=== PATIENT | male | born 1970 | race Caucasian/White ===

== ENCOUNTER 2018-04-26 22:37 | Emergency (ER) | payer MEDICAID ==
[2018-04-26] MEDS ORDERED: CYCLOBENZAPRINE 10 MG TABLET PO STA (23:51)
[2018-04-26] MEDS ORDERED: KETOROLAC 60 MG/2 ML VIAL IM STA (23:51)
[2018-04-26] MEDS ORDERED: DEXAMETHASONE 10 MG/ML VIAL PO STA (23:51)
--- NOTE | 2018-04-27 00:25 | ED Physician Documentation ---
PD HPI BACK PAIN - Stated complaint Stated Complaint: BACK/HIP PX - Chief complaint Chief Complaint: Back Pain - History obtained from History obtained from: Patient - History of Present Illness Timing - onset: Yesterday, Chronic Timing - details: Abrupt onset Location: Mid, Lower, Right Quality: Pain, Similar to prior episodes Contributing factors: No: Anticoagulated Similar symptoms before: Work up / diagnostics, Treatment Recently seen: Not recently seen - Additional information Additional information: Patient is a 48 year old male with a history of prior lumbar surgery who is presenting to the emergency department for low back pain. Patient states that he fell off the couch and gurwinder his back. Patient is new to the area and does not currently have a physician. Patient has no neurological deficits. Review of Systems Ten Systems: 10 systems reviewed and negative PD PAST MEDICAL HISTORY - Past Medical History Past Medical History: No - Past Surgical History Past Surgical History: Yes General: Appendectomy Ortho: Spine surgery HEENT: Other - Present Medications Home Medications: Ambulatory Orders Medication Instructions Recorded Confirmed Cyclobenzaprine [Flexeril] 10 mg PO TID PRN #14 tablet 04/27/18 Oxycodone HCl/Acetaminophen 1 - 2 each PO Q6H PRN #7 tablet 04/27/18 [Percocet 5-325 mg Tablet] - Allergies Allergies/Adverse Reactions: Allergies Allergy/AdvReac Type Severity Reaction Status Date / Time No Known Drug Allergies Allergy Verified 04/26/18 22:49 - Social History Does the pt smoke?: No Smoking Status: Never smoker Does the pt drink ETOH?: Yes Does the pt have substance abuse?: No - Immunizations Immunizations are current?: Yes - POLST Patient has POLST: No PD ED PE NORMAL - Vitals Vital signs reviewed: Yes - General General: Alert and oriented X 3 - HEENT HEENT: Atraumatic - Respiratory Respiratory: No respiratory distress - Derm Derm: Normal color - Extremities Extremities: No deformity PD ED PE EXPANDED - General General: Alert, Anxious - Cardiac Cardiac: Tachy - Back Back: Vertebral tenderness (midline lumbar tenderness), Other (previous scarring ) - Neuro Neuro: Alert and Oriented X 3, Normal motor, Normal Sensation, Normal gait, Other (no saddle parasthesia ). No: Weakness Results - Vitals Vitals: Vital Signs - 24 hr 04/26/18 04/27/18 04/27/18 22:46 00:54 01:47 Temperature 36.3 C L 36.3 C L Heart Rate 127 H 114 H 110 H Respiratory 17 16 16 Rate Blood Pressure 143/115 H 135/99 H 141/99 H O2 Saturation 98 97 96 Oxygen O2 Source Room air - Rads (name of study) lumbar spine Radiology: Prelim report reviewed, Final report received (no acute fracture, hardware in place L5 anterior in si but no prior to compare ) PD MEDICAL DECISION MAKING - ED course Complexity details: reviewed old records, reviewed results, re-evaluated patient , considered differential, d/w patient ED course: Patient was seen and examined at bedside. imaging was ordered. patient was treated with toradol, decadron, flexeril and lidoderm. When patient returned from imaging he still was in pain and treated with one percocet. Patient had no neurological deficits at this time and was stable for discharge at this time. - Sepsis Event Vital Signs: Vital Signs - 24 hr 04/26/18 04/27/18 04/27/18 22:46 00:54 01:47 Temperature 36.3 C L 36.3 C L Heart Rate 127 H 114 H 110 H Respiratory 17 16 16 Rate Blood Pressure 143/115 H 135/99 H 141/99 H O2 Saturation 98 97 96 Oxygen O2 Source Room air Departure - Departure Disposition: 01 Home, Self Care Clinical Impression: Back pain Condition: Good Instructions: ED Low Back Pain Injury Follow-Up: Horacio Torres MD [Provider Admit Priv/Credential] - Prescriptions: Cyclobenzaprine [Flexeril] 10 mg PO TID PRN #14 tablet PRN Reason: Spasms Oxycodone HCl/Acetaminophen [Percocet 5-325 mg Tablet] 1 - 2 each PO Q6H PRN #7 tablet PRN Reason: pain Comments: Your x-ray showed no acute fracture or dislocation. Your L5 is almost a centimeter forward on your S1, but this could be your baseline. It is important to establish primary care. I gave you the number of the orthopedic group and you can call them tomorrow to set up a follow up appointment. you may return to the emergency department at any time for new, worsening or uncontrollable symptoms.
[2018-04-27] MEDS ORDERED: oxyCOD/ACETAMIN 5 MG/325 MG TABLET PO STA (00:54)
--- NOTE | 2018-04-27 01:05 | XRAY Report ---
Procedure Date: 04/27/2018 Accession Number: [id number] / [id number] Procedure: XR - Lumbar Spine 2 View CPT Code: FULL RESULT: EXAM: LUMBOSACRAL SPINE RADIOGRAPHY EXAM DATE: 04/27/2018 12:11 AM. CLINICAL HISTORY: Fall 3 days ago, continuing back pain, previous surgery. COMPARISONS: None. TECHNIQUE: 3 views. FINDINGS: Alignment: Anterolisthesis of L5 relative to S1 is noted, measuring 18 mm. Very slight left convex scoliosis of the lumbar spine centered at L3. Bones: Five ogn-rnt-pcrbrdy lumbar vertebral bodies are present. No fractures or bone lesions. Posterior laminectomy changes are seen from L3-S1. Posterior spinal fixation noted at L3-L4. Interbody prosthesis seen at L3-L4, L4-L5, and L5-S1. Hardware within the anteroinferior portion of the L4 vertebral body is noted. The lower portion of this hardware terminates at the L4-L5 disk space level. Correlation for appropriate positioning of the hardware recommended. Disks: Multilevel disk space height loss as well as endplate osteophytosis. Facets: Multilevel facet arthropathy. Sacroiliac Joints: No diastases Soft Tissues: The visualized bowel gas pattern is normal. Other: Incidentally noted mild bilateral hip joint degenerative change. IMPRESSION: 1. No acute osseous abnormality demonstrated. Please see discussion above regarding the lumbar spine hardware. 2. Anterolisthesis of 18 mm of L5 relative to S1 of undetermined etiology. This may be related to prior surgery and degenerative disk disease. Comparison with any prior outside institution studies would be helpful to assess chronicity. RADIA
[2018-04-27 01:48] VITALS: BP 141/99
== END 2018-04-27 01:48 | disposition home or self-care (01) ==
LOC: ED 22:37
DX: M54.5 Low back pain (principal)
CPT/HCPCS: 72100; 96372; 99283; A9270

== ENCOUNTER 2018-06-06 23:43 | Outpatient (CLI) | payer MEDICAID | END 2018-06-06 23:44 | disposition critical access hospital (66) | LOC: EMS 23:43 | PROVIDERS: ATTEND Surgery | DX: R44.0 Auditory hallucinations (principal); R44.1 Visual hallucinations | CPT/HCPCS: A0425; A0429; A0999 ==

== ENCOUNTER 2018-06-07 00:01 | Emergency (ER) | payer MEDICAID ==
[2018-06-07] MEDS ORDERED: LORazepam 0.5 MG TABLET PO STA (00:49)
[2018-06-07 01:11] LABS: BASOPHILS # (AUTO) 0.1 10^3/uL (0.0-0.1); BASOPHILS % (AUTO) 0.8 %; EOSINOPHILS % (AUTO) 0.6 %; HGB - HEMOGLOBIN 14.1 g/dL (14.0-18.0); LYMPHOCYTES % (AUTO) 26.1 %; MEAN CORPUSCULAR HEMOGLOBIN 30.3 pg (27.0-31.0); MEAN CORPUSCULAR HGB CONC 34.9 g/dL (32.0-36.0); MEAN CORPUSCULAR VOLUME 86.7 fL (80.0-94.0); MEAN PLATELET VOLUME 8.8 fL (7.4-11.4); MONOCYTES # (AUTO) 0.5 10^3/uL (0.0-1.0); MONOCYTES % (AUTO) 5.9 %; NEUTROPHILS # (AUTO) 5.2 10^3/uL (1.5-6.6); NEUTROPHILS % (AUTO) 66.6 %; PLT - PLATELET COUNT 272 10^3/uL (130-450); RED BLOOD COUNT 4.66 10^6/uL (4.70-6.10); RED CELL DISTRIBUTION WIDTH 13.9 % (12.0-15.0); WHITE BLOOD COUNT 7.8 x10^3/uL (4.8-10.8)
[2018-06-07 01:23] LABS: ALBUMIN 4.1 g/dL (3.2-5.5); ALBUMIN/GLOBULIN RATIO 1.3 (1.0-2.2); ALKALINE PHOSPHATASE 65 IU/L (42-121); ALT ALANINE AMINOTRANSFERASE 33 IU/L (10-60); AST ASPARTATE AMINOTRANSFERASE 27 IU/L (10-42); BILIRUBIN,TOTAL 2.5 mg/dL (0.2-1.0); BUN - BLOOD UREA NITROGEN 11 mg/dL (6-20); CALCIUM 9.3 mg/dL (8.5-10.3); CARBON DIOXIDE - CO2 22 mmol/L (21-32); CHLORIDE 106 mmol/L (101-111); GFR - MDRD 80 (>89); GLUCOSE 106 mg/dL (70-100); LIPASE 24 U/L (22-51); SALICYLATE < 6.0 mg/dL; SODIUM 138 mmol/L (135-145); TOTAL PROTEIN 7.3 g/dL (6.7-8.2)
[2018-06-07 01:24] LABS: ACETAMINOPHEN < 10 ug/mL (10-30)
[2018-06-07] MEDS ORDERED: POTASSIUM BICARB 25 MEQ TABLET PO STA (02:17)
--- NOTE | 2018-06-07 02:21 | ED Physician Documentation ---
PD HPI MHE - Stated complaint Stated Complaint: MHE - Chief complaint Chief Complaint: MHE - History obtained from History obtained from: Patient - History of Present Illness Primary symptom: Psychosis, Out of meds Timing - onset: Chronic Contributing factors: Out of meds Similar symptoms before: Work up / diagnostics, Treatment Recently seen: Not recently seen - Additional information Additional information: Patient is a 48 year old male with a history of bipolar disorder with psychotic features who was brought in by ems for auditory hallucinations. patient states that he had been on a number of medications but he moved her from [place] without a doctor and has not had his medications. Patient states that the voices have become progressively worse. When asked if he only needed refills and outpatient appointment patient stated that he needed to talk to someone and was scared to go home because he did not know what he would do. Review of Systems Ten Systems: 10 systems reviewed and negative Psychiatric: reports: Depressed, Hallucinations, Anxiety, Insomnia PD PAST MEDICAL HISTORY - Past Medical History Past Medical History: Yes Psych: Depression, Anxiety, Bipolar disorder, Other Other Past Medical History: psychotic with visual/auditory hallucinations - Past Surgical History Past Surgical History: Yes General: Appendectomy Ortho: Spine surgery - Present Medications Home Medications: Ambulatory Orders Medication Instructions Recorded Confirmed No Known Home Medications [No 06/07/18 06/07/18 Known Home Medications] - Allergies Allergies/Adverse Reactions: Allergies Allergy/AdvReac Type Severity Reaction Status Date / Time No Known Drug Allergies Allergy Verified 06/07/18 00:10 - Social History Does the pt smoke?: No Smoking Status: Never smoker Does the pt drink ETOH?: No Does the pt have substance abuse?: No PD ED PE NORMAL - Vitals Vital signs reviewed: Yes - General General: Alert and oriented X 3, No acute distress - HEENT HEENT: Atraumatic - Cardiac Cardiac: RRR - Respiratory Respiratory: No respiratory distress - Derm Derm: Normal color, Warm and dry - Extremities Extremities: No deformity - Neuro Neuro: Alert and oriented X 3, No motor deficit, Normal speech Eye Opening: Spontaneous Motor: Obeys Commands Verbal: Oriented GCS Score: 15 PD ED PE EXPANDED - Psych Psych: Anxious, Auditory hallucinations, Visual hallucinations Results - Vitals Vitals: Vital Signs - 24 hr 06/07/18 00:05 Temperature 37.5 C Heart Rate 95 Respiratory 20 Rate Blood Pressure 140/106 H O2 Saturation 100 Oxygen O2 Source Room air - Labs Labs: Laboratory Tests 06/07/18 06/07/18 06/07/18 01:00 01:00 01:00 WBC 7.8 RBC 4.66 L Hgb 14.1 Hct 40.4 L MCV 86.7 MCH 30.3 MCHC 34.9 RDW 13.9 Plt Count 272 MPV 8.8 Neut # (Auto) 5.2 Lymph # (Auto) 2.0 [place] # (Auto) 0.5 Eos # (Auto) 0.0 Baso # (Auto) 0.1 Absolute Nucleated RBC 0.00 Nucleated RBC % 0.0 Sodium 138 Potassium 3.0 L Chloride 106 Carbon Dioxide 22 Anion Gap 10.0 BUN 11 Creatinine 1.0 Estimated GFR (MDRD) 80 L Glucose 106 H Calcium 9.3 Total Bilirubin 2.5 H AST 27 ALT 33 Alkaline Phosphatase 65 Total Protein 7.3 Albumin 4.1 Globulin 3.2 Albumin/Globulin Ratio 1.3 Lipase 24 TSH 1.55 Salicylates < 6.0 Urine Opiates Screen Ur Oxycodone Screen Urine Methadone Screen Ur Propoxyphene Screen Acetaminophen < 10 L Ur Barbiturates Screen Ur Tricyclics Screen Ur Phencyclidine Scrn Ur Amphetamine Screen U Methamphetamines Scrn U Benzodiazepines Scrn Urine Cocaine Screen U Cannabinoids Screen Ethyl Alcohol < 5.0 06/07/18 02:50 WBC RBC Hgb Hct MCV MCH MCHC RDW Plt Count MPV Neut # (Auto) Lymph # (Auto) [place] # (Auto) Eos # (Auto) Baso # (Auto) Absolute Nucleated RBC Nucleated RBC % Sodium Potassium Chloride Carbon Dioxide Anion Gap BUN Creatinine Estimated GFR (MDRD) Glucose Calcium Total Bilirubin AST ALT Alkaline Phosphatase Total Protein Albumin Globulin Albumin/Globulin Ratio Lipase TSH Salicylates Urine Opiates Screen NEGATIVE Ur Oxycodone Screen NEGATIVE Urine Methadone Screen NEGATIVE Ur Propoxyphene Screen NEGATIVE Acetaminophen Ur Barbiturates Screen NEGATIVE Ur Tricyclics Screen NEGATIVE Ur Phencyclidine Scrn NEGATIVE Ur Amphetamine Screen NEGATIVE U Methamphetamines Scrn NEGATIVE U Benzodiazepines Scrn NEGATIVE Urine Cocaine Screen NEGATIVE U Cannabinoids Screen POSITIVE H Ethyl Alcohol PD MEDICAL DECISION MAKING - ED course Complexity details: reviewed old records, re-evaluated patient, considered differential, d/w patient ED course: Patient was seen and examined at bedside. labs were drawn and urine was collected. patient was treated with ativan for anxiety and to try to help his sleep. Patient reported that the voices were getting worse and was treated with zyprexa. Patient's potassium was replaced. after a few hours patient stated that his agitation was coming back and patient was treated with another dose of zyprexa 5mg. patient was otherwise medically clear. Patient was signed over to Dr. Jackson pending social work evaluation. - Sepsis Event Vital Signs: Vital Signs - 24 hr 06/07/18 00:05 Temperature 37.5 C Heart Rate 95 Respiratory 20 Rate Blood Pressure 140/106 H O2 Saturation 100 Oxygen O2 Source Room air Departure - Departure Clinical Impression: Bipolar disorder with psychotic features Condition: Stable
[2018-06-07 02:56] LABS: MUDS CUTOFF CONCENTRATIONS CUTOFF CONC BELOW:
[2018-06-07 03:07] LABS: AMPHETAMINE SCREEN,URINE NEGATIVE (NEGATIVE); BENZODIAZEPINES SCREEN, URINE NEGATIVE (NEGATIVE); COCAINE SCREEN URINE NEGATIVE (NEGATIVE); METHADONE SCREEN, URINE NEGATIVE (NEGATIVE); METHAMPHETAMINES SCREEN, URINE NEGATIVE (NEGATIVE); OPIATE SCREEN, URINE NEGATIVE (NEGATIVE); OXYCODONE SCREEN, URINE NEGATIVE (NEGATIVE); PROPOXYPHENE SCREEN, URINE NEGATIVE (NEGATIVE); TRICYCLIC ANTIDEPRESSANT,URINE NEGATIVE (NEGATIVE)
[2018-06-07] MEDS ORDERED: OLANZapine ODT 5 MG TABLET TL STA ×2 (03:15→05:39)
--- NOTE | 2018-06-07 07:08 | ED Physician Documentation ---
History of Present Illness - Stated complaint Stated Complaint: MHE - Chief complaint Chief Complaint: MHE PD PAST MEDICAL HISTORY - Past Medical History Past Medical History: Yes Psych: Depression, Anxiety, Bipolar disorder, Other Other Past Medical History: psychotic with visual/auditory hallucinations - Past Surgical History Past Surgical History: Yes General: Appendectomy Ortho: Spine surgery - Present Medications Home Medications: Ambulatory Orders Medication Instructions Recorded Confirmed No Known Home Medications [No 06/07/18 06/07/18 Known Home Medications] - Allergies Allergies/Adverse Reactions: Allergies Allergy/AdvReac Type Severity Reaction Status Date / Time No Known Drug Allergies Allergy Verified 06/07/18 00:10 - Social History Does the pt smoke?: No Smoking Status: Never smoker Does the pt drink ETOH?: No Does the pt have substance abuse?: No Results - Vitals Vitals: Vital Signs - 24 hr 06/07/18 06/07/18 00:05 12:02 Temperature 37.5 C 36.5 C Heart Rate 95 57 L Respiratory 20 18 Rate Blood Pressure 140/106 H 106/79 O2 Saturation 100 96 Oxygen O2 Source Room air - Labs Labs: Laboratory Tests 06/07/18 06/07/18 06/07/18 01:00 01:00 01:00 WBC 7.8 RBC 4.66 L Hgb 14.1 Hct 40.4 L MCV 86.7 MCH 30.3 MCHC 34.9 RDW 13.9 Plt Count 272 MPV 8.8 Neut # (Auto) 5.2 Lymph # (Auto) 2.0 [place] # (Auto) 0.5 Eos # (Auto) 0.0 Baso # (Auto) 0.1 Absolute Nucleated RBC 0.00 Nucleated RBC % 0.0 Sodium 138 Potassium 3.0 L Chloride 106 Carbon Dioxide 22 Anion Gap 10.0 BUN 11 Creatinine 1.0 Estimated GFR (MDRD) 80 L Glucose 106 H Calcium 9.3 Total Bilirubin 2.5 H AST 27 ALT 33 Alkaline Phosphatase 65 Total Protein 7.3 Albumin 4.1 Globulin 3.2 Albumin/Globulin Ratio 1.3 Lipase 24 TSH 1.55 Salicylates < 6.0 Urine Opiates Screen Ur Oxycodone Screen Urine Methadone Screen Ur Propoxyphene Screen Acetaminophen < 10 L Ur Barbiturates Screen Ur Tricyclics Screen Ur Phencyclidine Scrn Ur Amphetamine Screen U Methamphetamines Scrn U Benzodiazepines Scrn Urine Cocaine Screen U Cannabinoids Screen Ethyl Alcohol < 5.0 06/07/18 02:50 WBC RBC Hgb Hct MCV MCH MCHC RDW Plt Count MPV Neut # (Auto) Lymph # (Auto) [place] # (Auto) Eos # (Auto) Baso # (Auto) Absolute Nucleated RBC Nucleated RBC % Sodium Potassium Chloride Carbon Dioxide Anion Gap BUN Creatinine Estimated GFR (MDRD) Glucose Calcium Total Bilirubin AST ALT Alkaline Phosphatase Total Protein Albumin Globulin Albumin/Globulin Ratio Lipase TSH Salicylates Urine Opiates Screen NEGATIVE Ur Oxycodone Screen NEGATIVE Urine Methadone Screen NEGATIVE Ur Propoxyphene Screen NEGATIVE Acetaminophen Ur Barbiturates Screen NEGATIVE Ur Tricyclics Screen NEGATIVE Ur Phencyclidine Scrn NEGATIVE Ur Amphetamine Screen NEGATIVE U Methamphetamines Scrn NEGATIVE U Benzodiazepines Scrn NEGATIVE Urine Cocaine Screen NEGATIVE U Cannabinoids Screen POSITIVE H Ethyl Alcohol PD MEDICAL DECISION MAKING - ED course ED course: assumed care 7 AM 06/07/18 48 male hx psychosis off meds for few weeks has vis and auditory hallucinations did not feel safe at home seen by night auditor and medically cleared - K repleted received zyprexa is awaiting SW eval per night auditor anticipate refill meds and outpt fup went to see pt [id number] he is awake RRR CTAB despite zyprexa last night, he states he is still hearing voices and they are telling him to harm others also vis hallucinations he thinks he needs inpt mental health he is vol SW consult pending bili noted but pt has no abd pain - defer to outpt setting after mental health issues Sw placed pt at [facility] completed pt has been calm and feel he is safe for BLS transport - Sepsis Event Vital Signs: Vital Signs - 24 hr 06/07/18 06/07/18 00:05 12:02 Temperature 37.5 C 36.5 C Heart Rate 95 57 L Respiratory 20 18 Rate Blood Pressure 140/106 H 106/79 O2 Saturation 100 96 Oxygen O2 Source Room air Departure - Departure Disposition: 65 Psych Hosp/Unit DC/Xfer Clinical Impression: Bipolar disorder with psychotic features Condition: Stable Comments: After you have been stabilized on medications and are out of [facility], I recommend you see your PMD about one of your liver function tests being elevated Discharge Date/Time: 06/07/18 17:04
[2018-06-07 12:03] VITALS: BP 106/79
== END 2018-06-07 17:04 ==
LOC: ED 00:01 → MERGE 00:01 → ED 17:04
DX: F30.2 Manic episode, severe with psychotic symptoms (principal)
CPT/HCPCS: 36415; 80053; 80306; 80307; 80320; 80329; 83690; 84443; 85025; 99284; 99285; A9270

== ENCOUNTER 2018-07-25 15:05 | Outpatient (CLI) | payer MEDICAID | END 2018-07-25 15:06 | disposition critical access hospital (66) | LOC: EMS 15:05 | PROVIDERS: ATTEND Surgery | DX: R44.0 Auditory hallucinations (principal) | CPT/HCPCS: A0425; A0429; A0999 ==

== ENCOUNTER 2018-07-25 15:27 | Emergency (ER) | payer MEDICAID ==
[2018-07-25 15:58] LABS: BASOPHILS % (AUTO) 0.4 %; EOSINOPHILS % (AUTO) 0.3 %; HGB - HEMOGLOBIN 16.1 g/dL (14.0-18.0); LYMPHOCYTES # (AUTO) 1.3 10^3/uL (1.5-3.5); MEAN CORPUSCULAR HEMOGLOBIN 29.9 pg (27.0-31.0); MEAN PLATELET VOLUME 8.4 fL (7.4-11.4); MONOCYTES # (AUTO) 0.3 10^3/uL (0.0-1.0); MONOCYTES % (AUTO) 3.8 %; NEUTROPHILS # (AUTO) 6.7 10^3/uL (1.5-6.6); NEUTROPHILS % (AUTO) 79.5 %; PLT - PLATELET COUNT 316 10^3/uL (130-450); RED CELL DISTRIBUTION WIDTH 14.3 % (12.0-15.0); WHITE BLOOD COUNT 8.4 x10^3/uL (4.8-10.8)
[2018-07-25 16:12] LABS: ACETAMINOPHEN < 10 ug/mL (10-30); ALBUMIN 4.5 g/dL (3.2-5.5); ALBUMIN/GLOBULIN RATIO 1.1 (1.0-2.2); ALKALINE PHOSPHATASE 99 IU/L (42-121); ALT ALANINE AMINOTRANSFERASE 32 IU/L (10-60); AST ASPARTATE AMINOTRANSFERASE 30 IU/L (10-42); BILIRUBIN,TOTAL 1.4 mg/dL (0.2-1.0); BUN - BLOOD UREA NITROGEN 12 mg/dL (6-20); CALCIUM 9.9 mg/dL (8.5-10.3); CARBON DIOXIDE - CO2 24 mmol/L (21-32); CHLORIDE 104 mmol/L (101-111); CREATININE 1.5 mg/dL (0.6-1.2); GFR - MDRD 50 (>89); GLUCOSE 111 mg/dL (70-100); LIPASE 18 U/L (22-51); SALICYLATE < 6.0 mg/dL; SODIUM 139 mmol/L (135-145); TOTAL PROTEIN 8.5 g/dL (6.7-8.2)
[2018-07-25 17:19] LABS: MUDS CUTOFF CONCENTRATIONS CUTOFF CONC BELOW:
[2018-07-25 17:24] LABS: BILIRUBIN,URINE NEGATIVE (NEGATIVE); GLUCOSE, URINE (UA) NEGATIVE (NEGATIVE); KETONES,URINE (UA) NEGATIVE (NEGATIVE); LEUKOCYTE ESTERASE, URINE NEGATIVE (NEGATIVE); NITRITE,URINE NEGATIVE (NEGATIVE); OCCULT BLOOD,URINE NEGATIVE (NEGATIVE); PH,URINE 7.5 PH (5.0-7.5); PROTEIN,URINE NEGATIVE (NEGATIVE); UROBILINOGEN,URINE 0.2 (NORMAL) E.U./dL (NORMAL)
[2018-07-25] MEDS ORDERED: SODIUM CHLORIDE 0.9% 1,000 ML IV ONE (17:27)
[2018-07-25 17:28] LABS: CLARITY,URINE CLEAR (CLEAR)
[2018-07-25 17:33] LABS: AMPHETAMINE SCREEN,URINE NEGATIVE (NEGATIVE); BENZODIAZEPINES SCREEN, URINE POSITIVE (NEGATIVE); COCAINE SCREEN URINE NEGATIVE (NEGATIVE); METHADONE SCREEN, URINE NEGATIVE (NEGATIVE); METHAMPHETAMINES SCREEN, URINE NEGATIVE (NEGATIVE); OPIATE SCREEN, URINE NEGATIVE (NEGATIVE); OXYCODONE SCREEN, URINE NEGATIVE (NEGATIVE); PROPOXYPHENE SCREEN, URINE NEGATIVE (NEGATIVE); TRICYCLIC ANTIDEPRESSANT,URINE NEGATIVE (NEGATIVE)
--- NOTE | 2018-07-25 18:48 | ED Physician Documentation ---
PD HPI MHE - Stated complaint Stated Complaint: MHE - Chief complaint Chief Complaint: MHE - Additional information Additional information: 48-year-old male presents emergency department with complaints of Hearing voices and the patient is concerned that he will perform self-harm. The patient has not injured himself currently. The patient denies any acute medical complaints. The patient reports severe symptoms. The patient is currently voluntary and requesting placement into a behavioral center Review of Systems Constitutional: denies: Fever Eyes: denies: Loss of vision Ears: denies: Ear pain Throat: denies: Dental pain / toothache Cardiac: denies: Chest pain / pressure Respiratory: denies: Cough GI: denies: Abdominal Pain : denies: Dysuria Skin: denies: Rash Musculoskeletal: denies: Neck pain Neurologic: denies: Generalized weakness Psychiatric: reports: Depressed, Suicidal, Hallucinations PD PAST MEDICAL HISTORY - Past Medical History Past Medical History: Yes Psych: Depression, Anxiety, Bipolar disorder, Other - Past Surgical History Past Surgical History: Yes General: Appendectomy Ortho: Spine surgery HEENT: Other - Present Medications Home Medications: Ambulatory Orders Medication Instructions Recorded Confirmed Cyclobenzaprine [Flexeril] 10 mg PO TID PRN #14 tablet 04/27/18 Oxycodone HCl/Acetaminophen 1 - 2 each PO Q6H PRN #7 tablet 04/27/18 [Percocet 5-325 mg Tablet] No Known Home Medications 06/07/18 06/07/18 - Allergies Allergies/Adverse Reactions: Allergies Allergy/AdvReac Type Severity Reaction Status Date / Time No Known Drug Allergies Allergy Verified 04/26/18 22:49 - Social History Does the pt smoke?: No Smoking Status: Never smoker Does the pt drink ETOH?: No Does the pt have substance abuse?: No - Immunizations Immunizations are current?: Yes - POLST Patient has POLST: No PD ED PE NORMAL - General General: Alert and oriented X 3, No acute distress - HEENT HEENT: Atraumatic, PERRL, EOMI - Neck Neck: Supple, no meningeal sign - Cardiac Cardiac: Other (Regular tachycardia) - Respiratory Respiratory: No respiratory distress, Clear bilaterally - Abdomen Abdomen: Soft, Non tender, Non distended - Back Back: No CVA TTP - Derm Derm: Normal color - Extremities Extremities: No deformity, No tenderness to palpate - Neuro Neuro: Alert and oriented X 3, Normal speech PD ED PE EXPANDED - Psych Psych: Depressed, Suicidal, Withdrawn, Auditory hallucinations. No: Intoxicated / AOB Results - Vitals Vitals: Vital Signs - 24 hr 07/25/18 07/25/18 15:29 19:51 Temperature 36.3 C L 37.1 C Heart Rate 114 H 97 Respiratory 18 16 Rate Blood Pressure 136/99 H 137/105 H O2 Saturation 96 96 Oxygen O2 Source Room air - Labs Labs: Laboratory Tests 07/25/18 07/25/18 07/25/18 15:51 15:51 17:18 WBC 8.4 RBC 5.40 Hgb 16.1 Hct 47.5 MCV 88.0 MCH 29.9 MCHC 34.0 RDW 14.3 Plt Count 316 MPV 8.4 Neut # (Auto) 6.7 H Lymph # (Auto) 1.3 L [place] # (Auto) 0.3 Eos # (Auto) 0.0 Baso # (Auto) 0.0 Absolute Nucleated RBC 0.03 Nucleated RBC % 0.4 Sodium 139 Potassium 3.7 Chloride 104 Carbon Dioxide 24 Anion Gap 11.0 BUN 12 Creatinine 1.5 H Estimated GFR (MDRD) 50 L Glucose 111 H Calcium 9.9 Total Bilirubin 1.4 H AST 30 ALT 32 Alkaline Phosphatase 99 Total Protein 8.5 H Albumin 4.5 Globulin 4.0 Albumin/Globulin Ratio 1.1 Lipase 18 L Urine Color YELLOW Urine Clarity CLEAR Urine pH 7.5 Ur Specific [place] 1.010 Urine Protein NEGATIVE Urine Glucose (UA) NEGATIVE Urine Ketones NEGATIVE Urine Occult Blood NEGATIVE Urine Nitrite NEGATIVE Urine Bilirubin NEGATIVE Urine Urobilinogen 0.2 (NORMAL) Ur Leukocyte Esterase NEGATIVE Ur Microscopic Review NOT INDICATED Urine Culture Comments NOT INDICATED Salicylates < 6.0 Urine Opiates Screen NEGATIVE Ur Oxycodone Screen NEGATIVE Urine Methadone Screen NEGATIVE Ur Propoxyphene Screen NEGATIVE Acetaminophen < 10 L Ur Barbiturates Screen NEGATIVE Ur Tricyclics Screen NEGATIVE Ur Phencyclidine Scrn NEGATIVE Ur Amphetamine Screen NEGATIVE U Methamphetamines Scrn NEGATIVE U Benzodiazepines Scrn POSITIVE H Urine Cocaine Screen NEGATIVE U Cannabinoids Screen NEGATIVE Ethyl Alcohol < 5.0 PD MEDICAL DECISION MAKING - ED course ED course: The patient is medically stable and is voluntary. The patient requests placement back to [facility]. We will attempt to procure the patient a bed 23:00 PM The patient is pending placement into a behavioral health facility. The patient care was turned over to Dr. Goode Departure - Departure Clinical Impression: Hallucinations
[2018-07-25] MEDS ORDERED: OLANZapine ODT 5 MG TABLET TL ONE (20:09)
[2018-07-25] MEDS ORDERED: IBUPROFEN 600 MG TABLET PO STA (22:39)
[2018-07-26] MEDS ORDERED: TEMAZEPAM 15 MG CAPSULE PO STA (01:56)
[2018-07-26] MEDS ORDERED: MIRTAZAPINE 15 MG TABLET PO STA (01:56)
[2018-07-26 04:58] VITALS: BP 96/78
--- NOTE | 2018-07-27 12:37 | ED Physician Documentation ---
ED Addendum - Addendum Addendum: 07/27/18 12:37 DISPOSITION : transfer [facility] hospital
== END 2018-07-26 05:00 ==
LOC: ED 15:27
DX: R44.0 Auditory hallucinations (principal); F31.9 Bipolar disorder, unspecified
CPT/HCPCS: 36415; 80053; 80306; 80307; 80320; 80329; 81003; 83690; 85025; 96360; 99284; A9270; 81001; 87086

== ENCOUNTER 2018-12-11 11:31 | Emergency (ER) | payer MEDICAID ==
--- NOTE | 2018-12-11 14:35 | ED Physician Documentation ---
PD HPI ABD PAIN - Stated complaint Stated Complaint: ABD/BACK PX TINGLING - Chief complaint Chief Complaint: General - History obtained from History obtained from: Patient - History of Present Illness Timing - onset: How many weeks ago (3) Timing - duration: Weeks (3) Timing - details: Gradual onset, Still present Quality: Cramping, Aching Location: All over / everywhere (more in lower abd) Improved by: No: Vomiting Worsened by: Eating Associated symptoms: Nausea, Vomiting, Diarrhea (profuse with lot of gas) Similar symptoms before: Has not had sx before Review of Systems Constitutional: reports: Fatigue. denies: Fever, Chills Nose: denies: Rhinorrhea / runny nose, Congestion Throat: denies: Sore throat Respiratory: denies: Cough GI: reports: Abdominal Pain, Nausea, Vomiting, Diarrhea. denies: Hematemesis, Bloody / black stool : denies: Dysuria, Frequency Musculoskeletal: denies: Back pain Neurologic: reports: Generalized weakness. denies: Focal weakness, Numbness, Near syncope Endocrine: reports: Weight loss (30 lbs in 3 weeks) PD PAST MEDICAL HISTORY - Past Medical History Cardiovascular: None Respiratory: None Neuro: None Endocrine/Autoimmune: None GI: None Psych: Depression, Anxiety, Bipolar disorder, Other - Past Surgical History Past Surgical History: Yes General: Appendectomy Ortho: Spine surgery HEENT: Other - Present Medications Home Medications: Ambulatory Orders Medication Instructions Recorded Confirmed Cyclobenzaprine [Flexeril] 10 mg PO TID PRN #14 tablet 04/27/18 Oxycodone HCl/Acetaminophen 1 - 2 each PO Q6H PRN #7 tablet 04/27/18 [Percocet 5-325 mg Tablet] Diphenoxylate/Atropine [Lomotil] 1 each PO QID PRN #15 tablet 12/11/18 Hydrocodone/Acetaminophen [[place] 1 each PO Q6H PRN #15 tablet 12/11/18 5-325 Tablet] Ondansetron Odt [Zofran] 4 mg TL Q6H PRN #20 tablet 12/11/18 metroNIDAZOLE [Flagyl] 250 mg PO Q8H #21 tablet 12/11/18 - Allergies Allergies/Adverse Reactions: Allergies Allergy/AdvReac Type Severity Reaction Status Date / Time cyclobenzaprine AdvReac Itching Verified 12/11/18 11:43 [From Flexeril] - Living Situation Living Situation: reports: With friend(s) (had been homelss until recent job and is living with friend now. Had had poor sanitation and water source when homeless.) - Social History Does the pt smoke?: No Smoking Status: Never smoker Does the pt drink ETOH?: No Does the pt have substance abuse?: No - Immunizations Immunizations are current?: Yes - POLST Patient has POLST: No PD ED PE NORMAL - Vitals Vital signs reviewed: Yes - General General: Alert and oriented X 3, Well developed/nourished, Other (appears uncomfortable) - HEENT HEENT: Pharynx benign. No: Moist mucous membranes - Neck Neck: Supple, no meningeal sign, No adenopathy - Cardiac Cardiac: RRR, No murmur - Respiratory Respiratory: Clear bilaterally - Abdomen Abdomen: Normal bowel sounds, Soft, Non distended, No organomegaly, Other (tender diffusely without focal area. No percussion nor rebound. ) Results - Vitals Vitals: Vital Signs - 24 hr 12/11/18 12/11/18 12/11/18 11:43 17:19 19:20 Temperature 36.3 C L 36.7 C 36.6 C Heart Rate 100 60 58 L Respiratory 18 17 16 Rate Blood Pressure 149/82 H 131/85 H 130/74 O2 Saturation 98 99 99 Oxygen O2 Source Room air - Labs Labs: Laboratory Tests 12/11/18 12/11/18 15:05 15:05 WBC 8.7 RBC 4.84 Hgb 14.1 Hct 42.1 MCV 87.1 MCH 29.2 MCHC 33.5 RDW 14.3 Plt Count 373 MPV 8.5 Neut # (Auto) 5.6 Lymph # (Auto) 2.6 [place] # (Auto) 0.4 Eos # (Auto) 0.0 Baso # (Auto) 0.1 Absolute Nucleated RBC 0.01 Nucleated RBC % 0.1 Sodium 137 Potassium 2.7 L Chloride 101 Carbon Dioxide 22 Anion Gap 14.0 H BUN 14 Creatinine 0.9 Estimated GFR (MDRD) 91 Glucose 148 H Calcium 9.4 PD MEDICAL DECISION MAKING - ED course Complexity details: re-evaluated patient, considered differential (The lab testing and CT scan were delayed due to lab abnormalities correction lab dysfunction and unable to get us test results as her machine was broken. Subsequently were able to get some labs in also then get the CT scan. He was given IV fluids while here along with antiemetics and medicine for pain and cramps. These did help quite a bit and is able to eat and drink some fluids. His CT scan did not show any acute focal abnormalities. The duration and severity of his diarrhea are suggestive of an infectious cause. He had previously been homeless and his water source was questionable so I would treat him for possibilities of Giardia, C. difficile, or less likely Salmonella. He would need to make an appointment with his primary care in their several weeks out on appointments. I therefore discussed with him and we had a shared decision to empirically treat with metronidazole for now and do stool cultures and tests if not improved. This is based on the fact he was unable to have a stool movement here and rather than trying to wait for outpatient cultures), d/w patient Departure - Departure Disposition: 01 Home, Self Care Clinical Impression: Weight loss Diarrhea Qualifiers: Diarrhea type: presumed infectious Qualified Code(s): R19.7 - Diarrhea, unspecified Condition: Stable Record reviewed to determine appropriate education?: Yes Instructions: ED Diarrhea Bacterial Prescriptions: Diphenoxylate/Atropine [Lomotil] 1 each PO QID PRN #15 tablet PRN Reason: Diarrhea Hydrocodone/Acetaminophen [[place] 5-325 Tablet] 1 each PO Q6H PRN #15 tablet PRN Reason: Pain metroNIDAZOLE [Flagyl] 250 mg PO Q8H #21 tablet Ondansetron Odt [Zofran] 4 mg TL Q6H PRN #20 tablet PRN Reason: Nausea / Vomiting Comments: Small frequent fluids and simple foods such as rice pasta as breads and cereals. Progress diet as able. Ondansetron as needed for nausea. Lomotil for diarrhea. Add hydrocodone if needed for pains and cramps. It is not clear the cause of the diarrhea at this point, presume an infectious cause. We can empirically try an antibiotic for the most likely culprits with Metronidazole three times daily for a week. If you are not improved over the next several days, and the diarrhea persists, obtain a stool sample that you can bring to your primary care or if you need to return to the ER. Follow-up if not improved over the next several days to week. Return if worsening symptoms. Discharge Date/Time: 12/11/18 19:28
[2018-12-11] MEDS ORDERED: SODIUM CHLORIDE 0.9% 1,000 ML IV ONE (14:55)
[2018-12-11] MEDS ORDERED: HYDROmorphone 1 MG/ML CARPUJECT IVP STA ×2 (14:55→18:19)
[2018-12-11] MEDS ORDERED: ONDANSETRON 4 MG/2 ML VIAL IVP STA (14:55)
[2018-12-11] MEDS ORDERED: KETOROLAC 15 MG/ML VIAL IVP STA (14:57)
[2018-12-11 15:15] LABS: BASOPHILS # (AUTO) 0.1 10^3/uL (0.0-0.1); BASOPHILS % (AUTO) 0.7 %; EOSINOPHILS % (AUTO) 0.4 %; HGB - HEMOGLOBIN 14.1 g/dL (14.0-18.0); LYMPHOCYTES # (AUTO) 2.6 10^3/uL (1.5-3.5); LYMPHOCYTES % (AUTO) 29.8 %; MEAN CORPUSCULAR HEMOGLOBIN 29.2 pg (27.0-31.0); MEAN CORPUSCULAR HGB CONC 33.5 g/dL (32.0-36.0); MEAN CORPUSCULAR VOLUME 87.1 fL (80.0-94.0); MEAN PLATELET VOLUME 8.5 fL (7.4-11.4); MONOCYTES # (AUTO) 0.4 10^3/uL (0.0-1.0); MONOCYTES % (AUTO) 4.9 %; NEUTROPHILS # (AUTO) 5.6 10^3/uL (1.5-6.6); NEUTROPHILS % (AUTO) 64.2 %; PLT - PLATELET COUNT 373 10^3/uL (130-450); RED BLOOD COUNT 4.84 10^6/uL (4.70-6.10); RED CELL DISTRIBUTION WIDTH 14.3 % (12.0-15.0); WHITE BLOOD COUNT 8.7 x10^3/uL (4.8-10.8)
[2018-12-11 15:25] LABS: CALCIUM 9.4 mg/dL (8.5-10.3)
[2018-12-11] MEDS ORDERED: IOVERSOL 320 100 ML VIAL IVP ONE ×2 (15:39→17:34)
[2018-12-11] MEDS ORDERED: POTASSIUM BICARB 25 MEQ TABLET PO STA (16:31)
--- NOTE | 2018-12-11 18:38 | CT Report ---
Reason: abd pain and diarrhea; TL area back pain Procedure Date: 12/11/2018 Accession Number: [id number] / [id number] Procedure: CT - Abdomen/Pelvis W CPT Code: FULL RESULT: EXAM: CT ABDOMEN AND PELVIS EXAM DATE: 12/11/2018 05:32 PM. CLINICAL HISTORY: Generalized abdominal pain. COMPARISONS: None. TECHNIQUE: Routine helical CT imaging was performed through the abdomen and pelvis. IV contrast: 100 mL Optiray 320. Enteric contrast: No. Reconstructions: Coronal and sagittal. In accordance with CT protocol optimization, one or more of the following dose reduction techniques were utilized for this exam: automated exposure control, adjustment of mA and/or KV based on patient size, or use of iterative reconstructive technique. FINDINGS: Lung Bases: Unremarkable. Liver: Normal. No masses. Gallbladder/Bile Ducts: Unremarkable. Spleen: Normal. Pancreas: Normal. Adrenal Glands: Normal. Kidneys: Normal. No masses or hydronephrosis. Peritoneal Cavity/Bowel: Normal. No free fluid, free air or adenopathy. No masses or acute inflammatory process. The appendix is not visualized and presumably surgically absent with surgical clips in the right lower quadrant region. Pelvic Organs: Normal. The bladder and visualized pelvic organs are within normal limits. Vasculature: No aneurysms or other significant abnormality. Bones: Fusion, lumbosacral anterolisthesis, and decompression of the lower spine is seen. No acute osseous abnormality is identified. Other: None. IMPRESSION: No acute intra-abdominal abnormality demonstrated. No obstruction or ileus. RADIA
[2018-12-11 18:41] LABS: CREATININE 0.9 mg/dL (0.6-1.2)
[2018-12-11] MEDS ORDERED: DIPHENOX/ATROPINE 2.5/0.025 MG TABLET PO STA (19:02)
[2018-12-11] MEDS ORDERED: metroNIDAZOLE 250 MG TABLET PO STA (19:02)
[2018-12-11 19:22] VITALS: BP 130/74
== END 2018-12-11 19:28 | disposition home or self-care (01) ==
LOC: ED 11:31
DX: R19.7 Diarrhea, unspecified (principal); R11.2 Nausea with vomiting, unspecified; R63.4 Abnormal weight loss; R10.9 Unspecified abdominal pain; R53.1 Weakness
CPT/HCPCS: 36415; 74177; 80048; 85025; 96361; 96374; 96375; 96376; 99283; A9270; J1170; Q9967; 80053; 83690

== ENCOUNTER 2018-12-25 08:30 | Emergency (ER) | payer MEDICAID ==
--- NOTE | 2018-12-25 08:49 | ED Physician Documentation ---
History of Present Illness - Stated complaint Stated Complaint: DEHYDRATED/VOMITING - Chief complaint Chief Complaint: General - History obtained from History obtained from: Patient - History of Present Illness Pain level max: 6 - Additonal information Additional information: Patient is a 48-year-old male generally healthy presenting with abdominal complaints including mild discomfort mostly on the left side, nausea and vomiting controlled by Zofran prescription, dysuria and urinary urgency, as well as nonbloody diarrhea. Patient reports lumbar fusion performed in the mid and since that time has had paresthesias and urinary incontinence. Surgery was performed in [place] and patient has had minimal follow-up since that time, but is currently scheduled with his primary care physician later this week to discuss his chronic back pain and other issues and hopefully obtain a referral to a allergy and immunology specialist for further evaluation, as well as possible physical therapy. Patient was seen in this ED on December 11, 2018 for abdominal complaints similar today with negative workup including CT imaging. Patient reports that in mid November when he was homeless he began experiencing abdominal complaints and there was a thought of possibly infectious diarrhea.Patient was started on Flagyl and has noted improvement, although not complete resolution of diarrhea. No stool sample has been obtained. Today, patient denies known fever, but admits to possible chills, as well as left-sided abdominal discomfort and above- mentioned symptoms. Patient denies respiratory difficulties, URI symptoms, other areas of pain or changes in his usual back related issues or specific back pain. Patient denies any particular improving or worsening factors to his comp laints. Review of Systems Ten Systems: 10 systems reviewed and negative Constitutional: denies: Fever PD PAST MEDICAL HISTORY - Past Medical History Past Medical History: Yes Cardiovascular: None Respiratory: None Neuro: None Endocrine/Autoimmune: None GI: None Psych: Depression, Anxiety, Bipolar disorder, Other - Past Surgical History Past Surgical History: Yes General: Appendectomy Ortho: Spine surgery HEENT: Other - Present Medications Home Medications: Ambulatory Orders Medication Instructions Recorded Confirmed Cyclobenzaprine [Flexeril] 10 mg PO TID PRN #14 tablet 04/27/18 Oxycodone HCl/Acetaminophen 1 - 2 each PO Q6H PRN #7 tablet 04/27/18 [Percocet 5-325 mg Tablet] Diphenoxylate/Atropine [Lomotil] 1 each PO QID PRN #15 tablet 12/11/18 Hydrocodone/Acetaminophen [[place] 1 each PO Q6H PRN #15 tablet 12/11/18 5-325 Tablet] Ondansetron Odt [Zofran] 4 mg TL Q6H PRN #20 tablet 12/11/18 metroNIDAZOLE [Flagyl] 250 mg PO Q8H #21 tablet 12/11/18 Dicyclomine [Bentyl] 20 mg PO BID #10 capsule 12/25/18 RX: Naproxen 500 mg PO BID #14 tablet. 12/25/18 - Allergies Allergies/Adverse Reactions: Allergies Allergy/AdvReac Type Severity Reaction Status Date / Time cyclobenzaprine AdvReac Mild Itching Verified 12/25/18 09:50 [From Flexeril] - Social History Does the pt smoke?: No Smoking Status: Never smoker Does the pt drink ETOH?: No Does the pt have substance abuse?: No - Immunizations Immunizations are current?: Yes - POLST Patient has POLST: No PD ED PE NORMAL - General General: Alert and oriented X 3, No acute distress, Well developed/nourished - HEENT HEENT: Atraumatic, Moist mucous membranes - Cardiac Cardiac: RRR, No murmur - Respiratory Respiratory: No respiratory distress, Clear bilaterally - Abdomen Abdomen: Normal bowel sounds, Soft, Non tender, Non distended - Derm Derm: Normal color, Warm and dry, No rash - Extremities Extremities: No deformity - Psych Psych: Normal mood Results - Vitals Vitals: Vital Signs - 24 hr 12/25/18 12/25/18 12/25/18 08:34 10:02 11:30 Temperature 36.4 C L Heart Rate 109 H 70 78 Respiratory 20 16 17 Rate Blood Pressure 149/92 H 132/80 H 138/80 H O2 Saturation 100 96 97 Oxygen O2 Source Room air - Labs Labs: Laboratory Tests 12/25/18 12/25/18 12/25/18 08:55 08:55 08:55 WBC 8.0 RBC 5.25 Hgb 15.4 Hct 46.3 MCV 88.1 MCH 29.3 MCHC 33.2 RDW 14.9 Plt Count 342 MPV 8.6 Neut # (Auto) 5.2 Lymph # (Auto) 2.4 [place] # (Auto) 0.3 Eos # (Auto) 0.0 Baso # (Auto) 0.0 Absolute Nucleated RBC 0.00 Nucleated RBC % 0.0 Sodium 135 Potassium 3.5 Chloride 100 L Carbon Dioxide 23 Anion Gap 12.0 BUN 14 Creatinine 0.9 Estimated GFR (MDRD) 91 Glucose 108 H Calcium 9.9 Total Bilirubin 2.4 H AST 26 ALT 21 Alkaline Phosphatase 50 Total Protein 8.9 H Albumin 5.0 Globulin 3.9 Albumin/Globulin Ratio 1.3 Lipase 29 Urine Color YELLOW Urine Clarity CLEAR Urine pH 8.0 H Ur Specific [place] 1.015 Urine Protein NEGATIVE Urine Glucose (UA) NEGATIVE Urine Ketones NEGATIVE Urine Occult Blood NEGATIVE Urine Nitrite NEGATIVE Urine Bilirubin NEGATIVE Urine Urobilinogen 0.2 (NORMAL) Ur Leukocyte Esterase NEGATIVE Ur Microscopic Review NOT INDICATED Urine Culture Comments NOT INDICATED PD MEDICAL DECISION MAKING - ED course Complexity details: reviewed old records, re-evaluated patient, considered differential, d/w patient ED course: Patient presenting with persistent abdominal complaints. Patient also has remot e spinal surgery history and chronic back pain and other issues related to this for which he is going to see his primary care physician later this week. Do not have high suspicion for new injury, spinal or spinal cord injury, including cauda equina or other emergent pathology at this time. Will further evaluate the abdomen again, although patient was seen for this same issue earlier in the month and is currently still undergoing medication therapy. Patient states his symptoms have improved since starting the patient's. Abdominal exam is particularly benign. Remainder of exam is also benign. Screening lab work and urinalysis obtained which returned relatively unremarkable. Patient did not have a stool in the ED and therefore unable to obtain a sample. CT abdomen/pelvis also obtained which was unremarkable. Discussed use of other pain medication such as Bentyl and naproxen, as well as provided work note. Otherwise feel the patient is safe to discharge home with follow-up later this week as scheduled and given return precautions. Patient voiced understanding and is comfortable with discharge plan. Departure - Departure Disposition: 01 Home, Self Care Clinical Impression: Abdominal pain Qualifiers: Abdominal location: generalized Qualified Code(s): R10.84 - Generalized abdominal pain Condition: Good Instructions: ED Abdominal Pain Unkn Cause Follow-Up: your,doctor [Other] - Within 3 Days Prescriptions: Dicyclomine [Bentyl] 20 mg PO BID #10 capsule RX: Naproxen 500 mg PO BID #14 tablet. Comments: Please continue all home medications as previously instructed. Please follow-up with your primary care physician as scheduled this week. Recommend a soft, bland diet advancing as tolerated, as well as significant hydration. Return to ED sooner if explains worsening symptoms or other concerns. Forms: Activity restrictions Discharge Date/Time: 12/25/18 11:40
[2018-12-25] MEDS ORDERED: DICYCLOMINE 10 MG CAPSULE PO STA (08:59)
[2018-12-25] MEDS ORDERED: SODIUM CHLORIDE 0.9% 1,000 ML IV ONE (08:59)
[2018-12-25] MEDS ORDERED: ONDANSETRON 4 MG/2 ML VIAL IVP STA (08:59)
[2018-12-25 09:30] LABS: BASOPHILS % (AUTO) 0.5 %; EOSINOPHILS % (AUTO) 0.5 %; HGB - HEMOGLOBIN 15.4 g/dL (14.0-18.0); LYMPHOCYTES # (AUTO) 2.4 10^3/uL (1.5-3.5); LYMPHOCYTES % (AUTO) 29.8 %; MEAN CORPUSCULAR HEMOGLOBIN 29.3 pg (27.0-31.0); MEAN CORPUSCULAR HGB CONC 33.2 g/dL (32.0-36.0); MEAN CORPUSCULAR VOLUME 88.1 fL (80.0-94.0); MEAN PLATELET VOLUME 8.6 fL (7.4-11.4); MONOCYTES # (AUTO) 0.3 10^3/uL (0.0-1.0); MONOCYTES % (AUTO) 3.8 %; NEUTROPHILS # (AUTO) 5.2 10^3/uL (1.5-6.6); NEUTROPHILS % (AUTO) 65.4 %; PLT - PLATELET COUNT 342 10^3/uL (130-450); RED BLOOD COUNT 5.25 10^6/uL (4.70-6.10); RED CELL DISTRIBUTION WIDTH 14.9 % (12.0-15.0)
[2018-12-25 09:40] LABS: BILIRUBIN,URINE NEGATIVE (NEGATIVE); GLUCOSE, URINE (UA) NEGATIVE (NEGATIVE); KETONES,URINE (UA) NEGATIVE (NEGATIVE); LEUKOCYTE ESTERASE, URINE NEGATIVE (NEGATIVE); NITRITE,URINE NEGATIVE (NEGATIVE); OCCULT BLOOD,URINE NEGATIVE (NEGATIVE); PROTEIN,URINE NEGATIVE (NEGATIVE); UROBILINOGEN,URINE 0.2 (NORMAL) E.U./dL (NORMAL)
[2018-12-25 09:47] LABS: ALBUMIN/GLOBULIN RATIO 1.3 (1.0-2.2); BILIRUBIN,TOTAL 2.4 mg/dL (0.2-1.0); CALCIUM 9.9 mg/dL (8.5-10.3); CREATININE 0.9 mg/dL (0.6-1.2); TOTAL PROTEIN 8.9 g/dL (6.7-8.2)
[2018-12-25 09:51] LABS: CLARITY,URINE CLEAR (CLEAR)
[2018-12-25] MEDS ORDERED: IOPAMIDOL-300 100 ML VIAL IVP ONE (10:35)
--- NOTE | 2018-12-25 10:55 | CT Report ---
Reason: diffuse pain, diarrhea, IV contrast only Procedure Date: 12/25/2018 Accession Number: [id number] / [id number] Procedure: CT - Abdomen/Pelvis W CPT Code: FULL RESULT: EXAM: CT ABDOMEN AND PELVIS EXAM DATE: 12/25/2018 10:34 AM. CLINICAL HISTORY: Diffuse pain, diarrhea, IV contrast only. COMPARISONS: abdomen/pelvis 12/11/2018. TECHNIQUE: Routine helical CT imaging was performed through the abdomen and pelvis. IV contrast: Isovue-300, 100 mL. Enteric contrast: No. Reconstructions: Coronal and sagittal. In accordance with CT protocol optimization, one or more of the following dose reduction techniques were utilized for this exam: automated exposure control, adjustment of mA and/or KV based on patient size, or use of iterative reconstructive technique. FINDINGS: Lung Bases: Unremarkable. Liver: Normal. No masses. Gallbladder/Bile Ducts: Unremarkable. Spleen: Normal. Pancreas: Normal. Adrenal Glands: Normal. Kidneys: Normal. No masses or hydronephrosis. Peritoneal Cavity/Bowel: Normal. No free fluid, free air or adenopathy. No masses or acute inflammatory process. The appendix is surgically absent. There is a bowel staple line in the right lower quadrant. Pelvic Organs: Normal. The bladder and visualized pelvic organs are within normal limits. Vasculature: No aneurysms or other significant abnormality. Bones: Stable operative changes after laminectomy at L5 with interbody fusion L3 through S1 and posterior rodding at L3-L4. Other: Vasectomy clips noted. IMPRESSION: Stable exam findings as previous. No specific abnormality to explain diffuse abdominal pain. RADIA
[2018-12-25 11:48] VITALS: BP 138/80
== END 2018-12-25 11:40 | disposition home or self-care (01) ==
LOC: ED 08:30
DX: R10.84 Generalized abdominal pain (principal); Z98.1 Arthrodesis status
CPT/HCPCS: 36415; 74177; 80053; 81003; 83690; 85025; 96361; 96374; 99283; A9270; 81001; 87086

== ENCOUNTER 2019-01-23 13:36 | Outpatient (CLI) | payer MEDICAID | END 2019-01-23 13:37 | disposition critical access hospital (66) | LOC: EMS 13:36 | PROVIDERS: ATTEND Surgery | DX: R53.1 Weakness (principal); K62.5 Hemorrhage of anus and rectum | CPT/HCPCS: A0425; A0429; A0999 ==

== ENCOUNTER 2019-01-23 14:15 | Emergency (ER) | payer MEDICAID ==
[2019-01-23] MEDS ORDERED: ONDANSETRON 4 MG/2 ML VIAL IVP STA (14:38)
[2019-01-23] MEDS ORDERED: SODIUM CHLORIDE 0.9% 1,000 ML IV ONE ×2 (14:38→15:47)
[2019-01-23] MEDS ORDERED: HYDROmorphone 1 MG/ML CARPUJECT IVP STA ×2 (14:38→18:09)
[2019-01-23] MEDS ORDERED: CIPROFLOXACIN 400 MG/200 ML 200 ML IV ONE (14:39)
[2019-01-23] MEDS ORDERED: methylPREDNISolone SUCCINATE 125 MG/2 ML VIAL IVP STA (14:40)
--- NOTE | 2019-01-23 14:44 | ED Physician Documentation ---
PD HPI ABD PAIN - Stated complaint Stated Complaint: WEAKNESS - Chief complaint Chief Complaint: Abd Pain - History obtained from History obtained from: Patient, EMS - History of Present Illness Timing - onset: How many months ago (3) Timing - duration: Months (3) Timing - details: Gradual onset, Still present Quality: Cramping, Sharp, Pain Location: Suprapubic Improved by: Laying still Worsened by: Moving, Position, Palpation Associated symptoms: Nausea, Loss of appetite, Weight loss (60lb in 2 months) Similar symptoms before: No diagnosis Recently seen: Clinic, Emergency Dept - Additional information Additional information: 49-year-old male has developed diarrhea and abdominal cramping beginning about 2 months ago. He reports that he has lost about 60 pounds associated with this and he has been into the emergency department he was initially treated with some Flagyl with some improvement in his symptoms. His symptoms returned he came back into the emergency department was reevaluated he has had 2 CT scans of the abdomen pelvis without contrast demonstrating no abnormality. He is now developed bloody diarrhea and he has had an increase in his stool output and has his pain localized to the left side. He has had intermittent sweats and he has lost his appetite. He is feeling rundown and dizzy on standing. He feels dehydrated. Review of Systems Constitutional: reports: Chills, Myalgias, Fatigue, Weight Loss, Sweats. denies: Fever Eyes: denies: Decreased vision Ears: denies: Ear pain Nose: denies: Rhinorrhea / runny nose, Congestion Throat: denies: Sore throat Cardiac: denies: Chest pain / pressure, Palpitations Respiratory: denies: Dyspnea, Cough GI: reports: Abdominal Pain, Nausea, Diarrhea, Bloody / black stool. denies: Vomiting : denies: Dysuria, Frequency PD PAST MEDICAL HISTORY - Past Medical History Cardiovascular: None Respiratory: None Neuro: None Endocrine/Autoimmune: None GI: None Psych: Depression, Anxiety, Bipolar disorder, Other - Past Surgical History Past Surgical History: Yes General: Appendectomy Ortho: Spine surgery HEENT: Other - Present Medications Home Medications: Ambulatory Orders Medication Instructions Recorded Confirmed Diphenoxylate/Atropine [Lomotil] 1 each PO QID PRN #15 tablet 12/11/18 01/23/19 Hydrocodone/Acetaminophen [[place] 1 each PO Q6H PRN #15 tablet 12/11/18 01/23/19 5-325 Tablet] Ondansetron Odt [Zofran] 4 mg TL Q6H PRN #20 tablet 12/11/18 Ciprofloxacin HCl [Cipro] 500 mg PO BID #14 tablet 01/23/19 Metronidazole [Flagyl] 500 mg PO BID #14 tablet 01/23/19 Ondansetron Odt [Zofran] 4 mg TL Q6H PRN #10 tablet 01/23/19 Oxycodone HCl/Acetaminophen 1 - 2 each PO Q6H PRN #14 tablet 01/23/19 [Percocet 5-325 mg Tablet] predniSONE [Prednisone] 60 mg PO DAILY #15 tablet 01/23/19 - Allergies Allergies/Adverse Reactions: Allergies Allergy/AdvReac Type Severity Reaction Status Date / Time cyclobenzaprine AdvReac Mild Itching Verified 01/23/19 14:23 [From Flexeril] - Social History Does the pt smoke?: No Smoking Status: Never smoker Does the pt drink ETOH?: No Does the pt have substance abuse?: No - Immunizations Immunizations are current?: Yes - POLST Patient has POLST: No PD ED PE NORMAL - Vitals Vital signs reviewed: Yes - General General: Alert and oriented X 3, Well developed/nourished, Other (The patient appears anxious and is in near tears. ) - Neck Neck: Supple, no meningeal sign, No bony TTP - Cardiac Cardiac: No murmur, Other (tachy to 110) - Respiratory Respiratory: No respiratory distress, Clear bilaterally - Abdomen Abdomen: Soft, Other (LLQ and suprapubic tenderness without guarding or rebound tenderness) - Back Back: No CVA TTP, No spinal TTP - Derm Derm: Normal color, Warm and dry, No rash - Extremities Extremities: No deformity, No edema - Neuro Neuro: Alert and oriented X 3, principal bioinformatics specialist 2-12 intact, No motor deficit, No sensory deficit, Normal speech Eye Opening: Spontaneous Motor: Obeys Commands Verbal: Oriented GCS Score: 15 - Psych Psych: Other (mood is anxoius and the affect is labile ) Results - Vitals Vitals: Vital Signs - 24 hr 01/23/19 01/23/19 01/23/19 14:21 16:02 17:38 Temperature 35.7 C L Heart Rate 105 H 76 78 Respiratory 20 14 16 Rate Blood Pressure 144/98 H 140/84 H 151/73 H O2 Saturation 100 98 98 Oxygen O2 Source Room air - Labs Labs: Laboratory Tests 01/23/19 01/23/19 01/23/19 14:46 14:46 14:46 WBC 11.2 H RBC 5.53 Hgb 15.9 Hct 48.3 MCV 87.4 MCH 28.8 MCHC 32.9 RDW 15.0 Plt Count 370 MPV 7.9 Neut # (Auto) 8.1 H Lymph # (Auto) 2.6 [place] # (Auto) 0.4 Eos # (Auto) 0.0 Baso # (Auto) 0.1 Absolute Nucleated RBC 0.01 Nucleated RBC % 0.1 PT 11.3 INR 1.0 Sodium 136 Potassium 3.8 Chloride 96 L Carbon Dioxide 21 Anion Gap 19.0 H BUN 15 Creatinine 0.9 Estimated GFR (MDRD) 90 Glucose 108 H Lactic Acid Calcium 10.0 Total Bilirubin 2.3 H AST 47 H ALT 30 Alkaline Phosphatase 72 Total Protein 9.0 H Albumin 4.7 Globulin 4.3 H Albumin/Globulin Ratio 1.1 Lipase 36 Urine Color Urine Clarity Urine pH Ur Specific [place] Urine Protein Urine Glucose (UA) Urine Ketones Urine Occult Blood Urine Nitrite Urine Bilirubin Urine Urobilinogen Ur Leukocyte Esterase Ur Microscopic Review Urine Culture Comments Ethyl Alcohol < 5.0 01/23/19 01/23/19 01/23/19 14:46 15:40 17:07 WBC RBC Hgb Hct MCV MCH MCHC RDW Plt Count MPV Neut # (Auto) Lymph # (Auto) [place] # (Auto) Eos # (Auto) Baso # (Auto) Absolute Nucleated RBC Nucleated RBC % PT INR Sodium Potassium Chloride Carbon Dioxide Anion Gap BUN Creatinine Estimated GFR (MDRD) Glucose Lactic Acid 4.6 H* 2.5 H Calcium Total Bilirubin AST ALT Alkaline Phosphatase Total Protein Albumin Globulin Albumin/Globulin Ratio Lipase Urine Color YELLOW Urine Clarity CLEAR Urine pH 8.0 H Ur Specific [place] 1.015 Urine Protein NEGATIVE Urine Glucose (UA) NEGATIVE Urine Ketones NEGATIVE Urine Occult Blood NEGATIVE Urine Nitrite NEGATIVE Urine Bilirubin NEGATIVE Urine Urobilinogen 0.2 (NORMAL) Ur Leukocyte Esterase NEGATIVE Ur Microscopic Review NOT INDICATED Urine Culture Comments NOT INDICATED Ethyl Alcohol - Rads (name of study) CT with Radiology: Prelim report reviewed (Impression: Normal abdomen pelvis CT.), EMP read indepedently, See rad report Procedures - IVC sono (time) 1430 Bedside IVC sono: IVC measures (cm) (1.02), IVC collapsed c insp (cm) (complete), Dehydration (est 1-2 liter deficit.) PD MEDICAL DECISION MAKING - ED course Complexity details: reviewed old records, reviewed results, re-evaluated patient, considered differential, d/w patient ED course: 49-year-old male with persistent diarrhea and abdominal cramping that is progressed from intermittent loose stools to diarrhea to bloody diarrhea. He has had symptoms for 2 months and I suspect he may have ulcerative colitis. He did have some improvement with Flagyl. Here today he is dehydrated on interrogation of the inferior vena cava. IV saline is begun is given IV Cipro and Solu-Medrol as well as Dilaudid and Zofran. He has no evidence of acute process on CT again today. We were not able to obtain a stool specimen. He did respond to treatment bringing his lactate down from 4.7 to 2.5 with 2 liters of saline, improvement in pain and improved strength. His course is most consistent with development of ulcerative colitis and I will prescribe some prednisone as well as zofran, cipro, flagyl and some pain medication. He has a follow up arranged with Anat and will need a referral to gastroenterology for biopsy after he is in remission. Departure - Departure Disposition: 01 Home, Self Care Clinical Impression: Ulcerative colitis, acute Qualifiers: Digestive disease complication type: with rectal bleeding Qualified Code(s): K51.911 - Ulcerative colitis, unspecified with rectal bleeding Condition: Stable Instructions: ED Colitis Ulcerative Follow-Up: Rolando Coppola [Primary Care Provider] - Prescriptions: Ciprofloxacin HCl [Cipro] 500 mg PO BID #14 tablet Metronidazole [Flagyl] 500 mg PO BID #14 tablet Ondansetron Odt [Zofran] 4 mg TL Q6H PRN #10 tablet PRN Reason: Nausea / Vomiting Oxycodone HCl/Acetaminophen [Percocet 5-325 mg Tablet] 1 - 2 each PO Q6H PRN #14 tablet PRN Reason: pain predniSONE [Prednisone] 60 mg PO DAILY #15 tablet Comments: It appears by your clinical history that you have a colitis and this is most likely ulcerative colitis and in order to confirm this diagnosis you will need a biopsy done. This is usually done through the [facility]. Follow-up with Dr. Coppola this week as planned and ask about a referral. If you are failing at home unable to hold your medications down, or worsening weakness return to the emergency department.
[2019-01-23 14:57] LABS: BASOPHILS # (AUTO) 0.1 10^3/uL (0.0-0.1); BASOPHILS % (AUTO) 0.6 %; EOSINOPHILS % (AUTO) 0.2 %; HGB - HEMOGLOBIN 15.9 g/dL (14.0-18.0); LYMPHOCYTES # (AUTO) 2.6 10^3/uL (1.5-3.5); LYMPHOCYTES % (AUTO) 23.3 %; MEAN CORPUSCULAR HEMOGLOBIN 28.8 pg (27.0-31.0); MEAN CORPUSCULAR HGB CONC 32.9 g/dL (32.0-36.0); MEAN CORPUSCULAR VOLUME 87.4 fL (80.0-94.0); MEAN PLATELET VOLUME 7.9 fL (7.4-11.4); MONOCYTES # (AUTO) 0.4 10^3/uL (0.0-1.0); MONOCYTES % (AUTO) 3.7 %; NEUTROPHILS # (AUTO) 8.1 10^3/uL (1.5-6.6); NEUTROPHILS % (AUTO) 72.2 %; PLT - PLATELET COUNT 370 10^3/uL (130-450); RED BLOOD COUNT 5.53 10^6/uL (4.70-6.10); WHITE BLOOD COUNT 11.2 x10^3/uL (4.8-10.8)
[2019-01-23 15:01] LABS: PT - PROTHROMBIN TIME 11.3 secs (9.9-12.6)
[2019-01-23] MEDS ORDERED: IOVERSOL 320 100 ML VIAL IVP ONE ×2 (15:07→16:59)
[2019-01-23 15:09] LABS: ALBUMIN 4.7 g/dL (3.2-5.5); ALBUMIN/GLOBULIN RATIO 1.1 (1.0-2.2); ALKALINE PHOSPHATASE 72 IU/L (42-121); ALT ALANINE AMINOTRANSFERASE 30 IU/L (10-60); AST ASPARTATE AMINOTRANSFERASE 47 IU/L (10-42); BILIRUBIN,TOTAL 2.3 mg/dL (0.2-1.0); BUN - BLOOD UREA NITROGEN 15 mg/dL (6-20); CARBON DIOXIDE - CO2 21 mmol/L (21-32); CHLORIDE 96 mmol/L (101-111); CREATININE 0.9 mg/dL (0.6-1.2); GFR - MDRD 90 (>89); GLUCOSE 108 mg/dL (70-100); LIPASE 36 U/L (22-51); SODIUM 136 mmol/L (135-145)
[2019-01-23] MEDS ORDERED: metroNIDAZOLE 500 MG/100 ML 500 MG/100 ML BAG IV ONE (15:47)
[2019-01-23 15:52] LABS: BILIRUBIN,URINE NEGATIVE (NEGATIVE); GLUCOSE, URINE (UA) NEGATIVE (NEGATIVE); KETONES,URINE (UA) NEGATIVE (NEGATIVE); LEUKOCYTE ESTERASE, URINE NEGATIVE (NEGATIVE); NITRITE,URINE NEGATIVE (NEGATIVE); OCCULT BLOOD,URINE NEGATIVE (NEGATIVE); PROTEIN,URINE NEGATIVE (NEGATIVE); UROBILINOGEN,URINE 0.2 (NORMAL) E.U./dL (NORMAL)
[2019-01-23 16:00] LABS: CLARITY,URINE CLEAR (CLEAR)
--- NOTE | 2019-01-23 16:58 | CT Report ---
Reason: lower abdominal cramping and diarrhea for months. Procedure Date: 01/23/2019 Accession Number: [id number] / [id number] Procedure: CT - Abdomen/Pelvis W CPT Code: FULL RESULT: EXAM: CT ABDOMEN AND PELVIS EXAM DATE: 01/23/2019 04:34 PM. CLINICAL HISTORY: Lower abdominal cramping and diarrhea for months. COMPARISONS: ABDOMEN/PELVIS W/ 12/25/2018 10:27 AM. TECHNIQUE: Routine helical CT imaging was performed through the abdomen and pelvis. IV contrast: OPTI 320 100mL. Enteric contrast: No. Reconstructions: Coronal and sagittal. In accordance with CT protocol optimization, one or more of the following dose reduction techniques were utilized for this exam: automated exposure control, adjustment of mA and/or KV based on patient size, or use of iterative reconstructive technique. FINDINGS: Lung Bases: Unremarkable. Liver: Normal. No masses. Gallbladder/Bile Ducts: Unremarkable. Spleen: Normal. Pancreas: Normal. Adrenal Glands: Normal. Kidneys: Normal. No masses or hydronephrosis. Peritoneal Cavity/Bowel: Normal. No free fluid, free air or adenopathy. No masses or acute inflammatory process. The appendix is not visualized but there is no evidence of appendicitis. No evidence of intestinal dilatation or obstruction. Pelvic Organs: Normal. The bladder and visualized pelvic organs are within normal limits. Vasculature: No aneurysms or other significant abnormality. Bones: No suspicious abnormality. Multilevel lower lumbar laminectomy and fusion. Other: None. IMPRESSION: Normal abdomen and pelvis CT. RADIA
[2019-01-23 17:39] VITALS: BP 151/73
== END 2019-01-23 18:26 | disposition home or self-care (01) ==
LOC: EDUNIT# → ED 14:15
DX: K51.911 Ulcerative colitis, unspecified with rectal bleeding (principal)
CPT/HCPCS: 74177; 80053; 80320; 81003; 83605; 83690; 85025; 85610; 96361; 96365; 96375; 96376; 99283; 99284; J1170; Q9967; 81001; 87086

== ENCOUNTER 2019-02-02 22:19 | Outpatient (CLI) | payer MEDICAID | END 2019-02-02 22:20 | disposition critical access hospital (66) | LOC: EMS 22:19 | PROVIDERS: ATTEND Surgery | DX: R55 Syncope and collapse (principal); S61.512A Laceration without foreign body of left wrist, initial encounter; X58.XXXA Exposure to other specified factors, initial encounter | CPT/HCPCS: A0425; A0429; A0999 ==

== ENCOUNTER 2019-02-02 22:32 | Emergency (ER) | payer MEDICAID ==
--- NOTE | 2019-02-02 22:48 | ED Physician Documentation ---
PD HPI MHE - Stated complaint Stated Complaint: WRIST LAC - Chief complaint Chief Complaint: MHE - History obtained from History obtained from: Patient, EMS - History of Present Illness Primary symptom: Self harm - cut (L wrist) Timing - onset: Today Pain level max: 0 Pain level now: 0 Contributing factors: Other (states stressed out about his life in general and he is "tired of being sick") Similar symptoms before: Diagnosis (bipolar) - Additional information Additional information: Had been on medications for bipolar disorder in the past, stopped several months ago, does not know what they were. Does not have a counselor or psychiatrist here Patient states that he "blacked out tonight and does not remember cutting his wrist." Review of Systems Ten Systems: 10 systems reviewed and negative Constitutional: denies: Fever, Chills Ears: denies: Ear pain Nose: denies: Rhinorrhea / runny nose, Congestion Respiratory: denies: Cough GI: denies: Nausea, Vomiting, Diarrhea : denies: Dysuria Skin: denies: Rash Musculoskeletal: denies: Neck pain, Back pain Neurologic: denies: Headache PD PAST MEDICAL HISTORY - Past Medical History Cardiovascular: None Respiratory: None Neuro: None Endocrine/Autoimmune: None GI: None Psych: Depression, Anxiety, Bipolar disorder, Other - Past Surgical History Past Surgical History: Yes General: Appendectomy Ortho: Spine surgery HEENT: Other - Present Medications Home Medications: Ambulatory Orders Medication Instructions Recorded Confirmed Diphenoxylate/Atropine [Lomotil] 1 each PO QID PRN #15 tablet 12/11/18 01/23/19 Hydrocodone/Acetaminophen [[place] 1 each PO Q6H PRN #15 tablet 12/11/18 01/23/19 5-325 Tablet] Ondansetron Odt [Zofran] 4 mg TL Q6H PRN #20 tablet 12/11/18 Ciprofloxacin HCl [Cipro] 500 mg PO BID #14 tablet 01/23/19 Metronidazole [Flagyl] 500 mg PO BID #14 tablet 01/23/19 Ondansetron Odt [Zofran] 4 mg TL Q6H PRN #10 tablet 01/23/19 Oxycodone HCl/Acetaminophen 1 - 2 each PO Q6H PRN #14 tablet 01/23/19 [Percocet 5-325 mg Tablet] predniSONE [Prednisone] 60 mg PO DAILY #15 tablet 01/23/19 - Allergies Allergies/Adverse Reactions: Allergies Allergy/AdvReac Type Severity Reaction Status Date / Time cyclobenzaprine AdvReac Mild Itching Verified 02/02/19 22:44 [From Flexeril] - Social History Does the pt smoke?: No Smoking Status: Never smoker Does the pt drink ETOH?: No Does the pt have substance abuse?: No - Immunizations Immunizations are current?: Yes - POLST Patient has POLST: No PD ED PE NORMAL - Vitals Vital signs reviewed: Yes - General General: Alert and oriented X 3, No acute distress, Well developed/nourished - HEENT HEENT: PERRL, Moist mucous membranes - Neck Neck: Supple, no meningeal sign - Cardiac Cardiac: RRR, Strong equal pulses - Respiratory Respiratory: No respiratory distress, Clear bilaterally - Abdomen Abdomen: Soft, Non tender, Non distended - Derm Derm: Warm and dry - Extremities Extremities: Other (Superficial laceration to the left wrist. No bleeding. We ll approximated) - Neuro Neuro: Alert and oriented X 3 - Psych Psych: Normal mood, Normal affect Results - Vitals Vitals: Vital Signs - 24 hr 02/02/19 02/02/19 22:37 22:43 Temperature 36.8 C Heart Rate 96 96 Respiratory 18 18 Rate Blood Pressure 154/96 H 154/96 H O2 Saturation 99 99 Oxygen O2 Source Room air - Labs Labs: Laboratory Tests 02/02/19 02/02/19 02/02/19 22:45 22:48 22:48 WBC 10.0 RBC 4.85 Hgb 14.9 Hct 42.7 MCV 88.1 MCH 30.8 MCHC 34.9 RDW 14.9 Plt Count 346 MPV 7.3 L Neut # (Auto) 6.0 Lymph # (Auto) 3.2 [place] # (Auto) 0.7 Eos # (Auto) 0.1 Baso # (Auto) 0.1 Absolute Nucleated RBC 0.00 Nucleated RBC % 0.0 Sodium 135 Potassium 3.1 L Chloride 98 L Carbon Dioxide 25 Anion Gap 12.0 BUN 15 Creatinine 1.0 Estimated GFR (MDRD) 80 L Glucose 91 Calcium 9.3 Total Bilirubin 2.3 H AST 25 ALT 17 Alkaline Phosphatase 53 Total Protein 8.2 Albumin 4.4 Globulin 3.8 Albumin/Globulin Ratio 1.2 Lipase 34 TSH Urine Color YELLOW Urine Clarity CLEAR Urine pH 7.0 Ur Specific [place] 1.010 Urine Protein NEGATIVE Urine Glucose (UA) NEGATIVE Urine Ketones TRACE Urine Occult Blood NEGATIVE Urine Nitrite NEGATIVE Urine Bilirubin NEGATIVE Urine Urobilinogen 4 H Ur Leukocyte Esterase NEGATIVE Ur Microscopic Review NOT INDICATED Urine Culture Comments NOT INDICATED Salicylates < 6.0 Urine Opiates Screen NEGATIVE Ur Oxycodone Screen NEGATIVE Urine Methadone Screen NEGATIVE Ur Propoxyphene Screen NEGATIVE Acetaminophen 11 Ur Barbiturates Screen NEGATIVE Ur Tricyclics Screen NEGATIVE Ur Phencyclidine Scrn NEGATIVE Ur Amphetamine Screen NEGATIVE U Methamphetamines Scrn NEGATIVE U Benzodiazepines Scrn NEGATIVE Urine Cocaine Screen NEGATIVE U Cannabinoids Screen POSITIVE H Ethyl Alcohol < 5.0 02/02/19 22:48 WBC RBC Hgb Hct MCV MCH MCHC RDW Plt Count MPV Neut # (Auto) Lymph # (Auto) [place] # (Auto) Eos # (Auto) Baso # (Auto) Absolute Nucleated RBC Nucleated RBC % Sodium Potassium Chloride Carbon Dioxide Anion Gap BUN Creatinine Estimated GFR (MDRD) Glucose Calcium Total Bilirubin AST ALT Alkaline Phosphatase Total Protein Albumin Globulin Albumin/Globulin Ratio Lipase TSH 1.22 Urine Color Urine Clarity Urine pH Ur Specific [place] Urine Protein Urine Glucose (UA) Urine Ketones Urine Occult Blood Urine Nitrite Urine Bilirubin Urine Urobilinogen Ur Leukocyte Esterase Ur Microscopic Review Urine Culture Comments Salicylates Urine Opiates Screen Ur Oxycodone Screen Urine Methadone Screen Ur Propoxyphene Screen Acetaminophen Ur Barbiturates Screen Ur Tricyclics Screen Ur Phencyclidine Scrn Ur Amphetamine Screen U Methamphetamines Scrn U Benzodiazepines Scrn Urine Cocaine Screen U Cannabinoids Screen Ethyl Alcohol PD MEDICAL DECISION MAKING - ED course Complexity details: reviewed results, re-evaluated patient, considered differential, d/w patient ED course: Patient with laceration to the left wrist, superficial does not require repair. It was cleansed and dressed. He does have a history of bipolar with psychotic features. He states he is hearing voices and is not taking any psychiatric medications at this time. Tele-psychiatry was consulted and they recommend inpatient care. Patient is agreeable to this at this time. They also recommend starting Zyprexa 5 mg in the morning and 10 mg at night. Social work to look for placement in the morning. Patient signed out to the [facility] emergency department physician This document was made in part using voice recognition software. While efforts are made to proofread this document, sound alike and grammatical errors may occur. Departure - Departure Clinical Impression: Laceration of wrist, left Qualifiers: Encounter type: initial encounter Qualified Code(s): S61.512A - Laceration without foreign body of left wrist, initial encounter Bipolar disorder Qualifiers: Active/Remission status: currently active Current bipolar episode type: depressed Current episode severity: severe Psychotic features: with psychotic features Qualified Code(s): F31.5 - Bipolar disorder, current episode depressed, severe, with psychotic features Condition: Stable
[2019-02-02 22:51] LABS: MUDS CUTOFF CONCENTRATIONS CUTOFF CONC BELOW:
[2019-02-02 22:53] LABS: BASOPHILS # (AUTO) 0.1 10^3/uL (0.0-0.1); BASOPHILS % (AUTO) 0.8 %; EOSINOPHILS # (AUTO) 0.1 10^3/uL (0.0-0.7); EOSINOPHILS % (AUTO) 0.7 %; HGB - HEMOGLOBIN 14.9 g/dL (14.0-18.0); LYMPHOCYTES # (AUTO) 3.2 10^3/uL (1.5-3.5); LYMPHOCYTES % (AUTO) 31.6 %; MEAN CORPUSCULAR HEMOGLOBIN 30.8 pg (27.0-31.0); MEAN CORPUSCULAR HGB CONC 34.9 g/dL (32.0-36.0); MEAN CORPUSCULAR VOLUME 88.1 fL (80.0-94.0); MEAN PLATELET VOLUME 7.3 fL (7.4-11.4); MONOCYTES # (AUTO) 0.7 10^3/uL (0.0-1.0); MONOCYTES % (AUTO) 6.6 %; NEUTROPHILS % (AUTO) 60.3 %; PLT - PLATELET COUNT 346 10^3/uL (130-450); RED BLOOD COUNT 4.85 10^6/uL (4.70-6.10); RED CELL DISTRIBUTION WIDTH 14.9 % (12.0-15.0)
[2019-02-02 22:59] LABS: BILIRUBIN,URINE NEGATIVE (NEGATIVE); GLUCOSE, URINE (UA) NEGATIVE (NEGATIVE); KETONES,URINE (UA) TRACE mg/dL (NEGATIVE); LEUKOCYTE ESTERASE, URINE NEGATIVE (NEGATIVE); NITRITE,URINE NEGATIVE (NEGATIVE); OCCULT BLOOD,URINE NEGATIVE (NEGATIVE); PROTEIN,URINE NEGATIVE (NEGATIVE); UROBILINOGEN,URINE 4 E.U./dL (NORMAL)
[2019-02-02 23:02] LABS: CLARITY,URINE CLEAR (CLEAR)
[2019-02-02 23:07] LABS: AMPHETAMINE SCREEN,URINE NEGATIVE (NEGATIVE); BENZODIAZEPINES SCREEN, URINE NEGATIVE (NEGATIVE); COCAINE SCREEN URINE NEGATIVE (NEGATIVE); METHADONE SCREEN, URINE NEGATIVE (NEGATIVE); METHAMPHETAMINES SCREEN, URINE NEGATIVE (NEGATIVE); OPIATE SCREEN, URINE NEGATIVE (NEGATIVE); OXYCODONE SCREEN, URINE NEGATIVE (NEGATIVE); PROPOXYPHENE SCREEN, URINE NEGATIVE (NEGATIVE); TRICYCLIC ANTIDEPRESSANT,URINE NEGATIVE (NEGATIVE)
[2019-02-02 23:08] LABS: ACETAMINOPHEN 11 ug/mL (10-30); ALBUMIN 4.4 g/dL (3.2-5.5); ALKALINE PHOSPHATASE 53 IU/L (42-121); ALT ALANINE AMINOTRANSFERASE 17 IU/L (10-60); AST ASPARTATE AMINOTRANSFERASE 25 IU/L (10-42); BILIRUBIN,TOTAL 2.3 mg/dL (0.2-1.0); BUN - BLOOD UREA NITROGEN 15 mg/dL (6-20); CALCIUM 9.3 mg/dL (8.5-10.3); CARBON DIOXIDE - CO2 25 mmol/L (21-32); CHLORIDE 98 mmol/L (101-111); GFR - MDRD 80 (>89); GLUCOSE 91 mg/dL (70-100); LIPASE 34 U/L (22-51); SALICYLATE < 6.0 mg/dL; SODIUM 135 mmol/L (135-145)
[2019-02-02 23:19] LABS: ALBUMIN/GLOBULIN RATIO 1.2 (1.0-2.2); TOTAL PROTEIN 8.2 g/dL (6.7-8.2)
[2019-02-02] MEDS ORDERED: LORazepam 1 MG TABLET PO STA (23:44)
[2019-02-03] MEDS ORDERED: LORazepam 0.5 MG TABLET PO STA (04:38)
[2019-02-03] MEDS ORDERED: OLANZapine ODT 5 MG TABLET TL STA (04:46)
--- NOTE | 2019-02-03 05:20 | TELEPSYCH PHYS NOTE ---
Telepsych Note - CHIEF COMPLAINT/HX OF PRESENT ILLNESS Cheif Complaint and History of Present Illness: Chief Complaint: depression HPI: The patient is a 49-year-old male who presents to the hospital complaining of and auditory hallucinations. He arrived with a superficial cut to his wrist. "I don't remember doing it." The patient states that he has been off his psychiatric meds since August 2018. For the past several days, he has experienced auditory hallucinations which made derogatory comments, told the patient he was worthless, and told him to end his life. He has not been eating or sleeping. He has lost 60 pounds in the past 3 months. "I cant go to work." The patient also reports racing thoughts. "I don't feel safe." - SI/HI/SELF HARM SI/HI/SELF HARM (CURRENT OR HISTORY OF):: SI SI/HI/Self Harm Text (Current or History of):: One attempt, cut wrist summer 2017 - VIOLENCE/LEGAL/COLLATERAL Violence - Legal - Collateral: Violence: none Legal: none Collateral: none - PSYCHIATRIC HX/TREATMENT HX Psychiatric: Depression, Anxiety, Bipolar disorder, Other Psychiatric/Treatment Hx Other: 3 prior inpatient admissions, last admission in fall 2017. Current outpatient treatment-none. - DRUG/ALCOHOL HX Substance use/abuse/alcohol text: Alcohol-drinks couple times a month, last drink 2 days ago - MEDICAL HX Does the pt have a hx of MRSA?: No Neurological History: None Cardiovascular: None Respiratory: None Endocrine/Autoimmune: None Gastrointestinal: None - SURGICAL HX General: Appendectomy Orthopedic: Spine surgery - HOME MEDICATIONS Home Meds (as last confirmed): none - ALLERGIES Allergies (as last confirmed): Allergies Allergy/AdvReac Type Severity Reaction Status Date / Time cyclobenzaprine AdvReac Mild Itching Verified 02/02/19 22:44 [From Flexeril] - FAMILY PSYCH/SUICIDE/SOCIAL HX-MENTAL Family - Suicide - Social Hx and Mental Status Exam: Family Psychiatric History: none Social History: single, lives alone Employment: [employer] Education: HS grad, some college Stressors: family, chronic pain History: none Abuse: none Mental Status Examination: Attitude and behavior: cooperative Speech: WNL Affect and mood: sad affect and mood Association and thought processes: linear Thought content: no delusions, + SI, no HI Perception: no hallucinations Sensorium, memory, and orientation: AAOx3 Intellectual functioning: average Insight and judgment: poor - PATIENT PROBLEM LIST (1) Bipolar depression Impression: The patient is a 49-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 The patient is not safe for discharge. Admit as voluntary. Start psych meds. - TREATMENT/PHARMACOLOGICAL RECOMMENDATION Treatment - Pharmacological - Therapy Recommendations: Treatment Recommendations: inpatient care Pharmacological: Zyprexa 5 mg QAM and 10 mg QHS Therapy: supportive Level of Care: inpatient - TIME SPENT & PROVIDER LOCATION Telepsych consultation conducted via videoconferencing: Yes List names and roles of persons who participated in consult: Jesus Vázquez M.D. [facility] Telepsych Provider Location: [place] Time Telepsych consult began: 07:20 Time Telepsych consult completed: 07:40
[2019-02-03] MEDS ORDERED: LORazepam 1 MG TABLET PO STA ×2 (10:59→16:09)
[2019-02-03 16:16] VITALS: BP 118/74
== END 2019-02-03 16:41 ==
LOC: EDUNIT# → ED 22:32
DX: F31.5 Bipolar disorder, current episode depressed, severe, with psychotic features (principal); S61.512A Laceration without foreign body of left wrist, initial encounter; X78.9XXA Intentional self-harm by unspecified sharp object, initial encounter
CPT/HCPCS: 36415; 80053; 80306; 80307; 80320; 80329; 81003; 83690; 84443; 85025; 99284; 99285; A9270; G0425; J8499; Q3014; 81001; 87086

== ENCOUNTER 2019-02-18 19:47 | Outpatient (CLI) | payer MEDICAID | END 2019-02-18 19:48 | disposition critical access hospital (66) | LOC: EMS 19:47 | PROVIDERS: ATTEND Surgery | DX: R44.0 Auditory hallucinations (principal) | CPT/HCPCS: A0425; A0429; A0999 ==

== ENCOUNTER 2019-02-18 20:02 | Emergency (ER) | payer MEDICAID ==
--- NOTE | 2019-02-18 20:12 | ED Physician Documentation ---
PD HPI MHE - Stated complaint Stated Complaint: MHE - Chief complaint Chief Complaint: MHE - History obtained from History obtained from: Patient, EMS - History of Present Illness Primary symptom: Suicidal ideation, Psychosis, Depression Timing - onset: Chronic Pain level max: 0 Pain level now: 0 Similar symptoms before: Diagnosis (bipolar w/ psychosis) Recently seen: Emergency Dept, Admitted - Additional information Additional information: patient was evaluated earlier this month in this ED for similar symptoms of depression and psychosis. At that time, he had self-inflicted wrist laceration which was in response to auditory hallucinations he was having. He was transferred to [facility] and was there for approximately 2 weeks, discharged 4 days ago. Patient called 911 tonight due to ongoing auditory hallucinations, worsening past 2-3 days, which continue to instruct him to kill himself. He is increasingly upset and depressed because of this. Asked if he has been taking his medications, he says he isn't certain, as he frequently loses track of time. He wants to be readmitted to a psychiatric facility Review of Systems Constitutional: reports: Reviewed and negative Eyes: reports: Reviewed and negative Ears: reports: Reviewed and negative Nose: reports: Reviewed and negative Throat: reports: Reviewed and negative Cardiac: reports: Reviewed and negative Respiratory: reports: Reviewed and negative GI: reports: Reviewed and negative : reports: Reviewed and negative Skin: reports: Reviewed and negative Musculoskeletal: reports: Back pain (chronic) Neurologic: reports: Reviewed and negative Psychiatric: reports: Depressed, Suicidal, Hallucinations, Anxiety, Insomnia. denies: Homicidal, Delusions PD PAST MEDICAL HISTORY - Past Medical History Cardiovascular: None Respiratory: None Neuro: None Endocrine/Autoimmune: None GI: None Psych: Depression, Anxiety, Bipolar disorder, Other - Past Surgical History Past Surgical History: Yes General: Appendectomy Ortho: Spine surgery HEENT: Other - Present Medications Home Medications: Ambulatory Orders Medication Instructions Recorded Confirmed Doxepin [SINEquan] 50 mg PO DAILY 02/18/19 02/18/19 Gabapentin 300 mg PO TID 02/18/19 02/18/19 Olanzapine [Zyprexa] 20 mg PO DAILY PM 02/18/19 02/18/19 Zolpidem Tartrate [Ambien] 10 mg PO PRN PRN 02/18/19 02/18/19 - Allergies Allergies/Adverse Reactions: Allergies Allergy/AdvReac Type Severity Reaction Status Date / Time cyclobenzaprine AdvReac Mild Itching Verified 02/18/19 20:10 [From Flexeril] - Social History Does the pt smoke?: No Smoking Status: Never smoker Does the pt drink ETOH?: No Does the pt have substance abuse?: No - Immunizations Immunizations are current?: Yes - POLST Patient has POLST: No PD ED PE NORMAL - Vitals Vital signs reviewed: Yes - General General: Alert and oriented X 3, Well developed/nourished, Other (anxious, frightened, tearful. appears to be distracted and, when asked, he confirms that he is actively hearing voices during HPI/PE) - HEENT HEENT: PERRL, EOMI - Neck Neck: Supple, no meningeal sign - Cardiac Cardiac: RRR, No murmur - Respiratory Respiratory: No respiratory distress, Clear bilaterally - Abdomen Abdomen: Soft, Non tender - Derm Derm: Normal color, Warm and dry - Neuro Neuro: Alert and oriented X 3, implementation lead 2-12 intact, No motor deficit, No sensory deficit, Normal speech Eye Opening: Spontaneous Motor: Obeys Commands Verbal: Oriented GCS Score: 15 PD ED PE EXPANDED - Psych Psych: Depressed, Suicidal, Tearful, Anxious Results - Vitals Vitals: Vital Signs - 24 hr 02/19/19 02/19/19 14:00 18:45 Temperature 36.7 C Heart Rate 93 114 H Respiratory 16 16 Rate Blood Pressure 130/84 H 152/98 H O2 Saturation 97 99 Oxygen O2 Source Room air - Labs Labs: Laboratory Tests 02/18/19 02/18/19 02/18/19 20:45 20:45 21:10 WBC 8.1 RBC 4.62 L Hgb 13.9 L Hct 40.6 L MCV 88.0 MCH 30.1 MCHC 34.3 RDW 15.0 Plt Count 365 MPV 7.5 Neut # (Auto) 4.6 Lymph # (Auto) 2.8 [place] # (Auto) 0.5 Eos # (Auto) 0.1 Baso # (Auto) 0.0 Absolute Nucleated RBC 0.01 Nucleated RBC % 0.1 Sodium 141 Potassium 3.5 Chloride 107 Carbon Dioxide 22 Anion Gap 12.0 BUN 12 Creatinine 1.0 Estimated GFR (MDRD) 80 L Glucose 103 H Calcium 9.3 Urine Color YELLOW Urine Clarity CLEAR Urine pH 7.0 Ur Specific [place] 1.010 Urine Protein NEGATIVE Urine Glucose (UA) NEGATIVE Urine Ketones TRACE Urine Occult Blood NEGATIVE Urine Nitrite NEGATIVE Urine Bilirubin NEGATIVE Urine Urobilinogen 0.2 (NORMAL) Ur Leukocyte Esterase NEGATIVE Ur Microscopic Review NOT INDICATED Urine Culture Comments NOT INDICATED Salicylates < 6.0 Urine Opiates Screen POSITIVE H Ur Oxycodone Screen NEGATIVE Urine Methadone Screen NEGATIVE Ur Propoxyphene Screen NEGATIVE Acetaminophen < 10 L Ur Barbiturates Screen NEGATIVE Ur Tricyclics Screen NEGATIVE Ur Phencyclidine Scrn NEGATIVE Ur Amphetamine Screen NEGATIVE U Methamphetamines Scrn NEGATIVE U Benzodiazepines Scrn NEGATIVE Urine Cocaine Screen NEGATIVE U Cannabinoids Screen POSITIVE H Ethyl Alcohol 80.8 PD MEDICAL DECISION MAKING - ED course Complexity details: reviewed old records, reviewed results, re-evaluated patient, considered differential, d/w patient ED course: Telepsych consult obtained and recommendation is hospitalization (psychiatric facility). ED RN contacted several such facilities but was unable to procure bed. Plan is hold patient in ED until AM, SW consult for further attempt at placement. Care of patient turned over to Dr. Sanchez (oncoming ED physician) at end of my shift. Departure - Departure Disposition: [facility] Psych Hosp/Unit DC/Xfer Clinical Impression: Depression, Bipolar disorder with psychotic features Condition: Stable Discharge Date/Time: 02/19/19 18:46
[2019-02-18] MEDS ORDERED: OLANZapine ODT 5 MG TABLET TL STA (20:36)
[2019-02-18 20:53] LABS: BASOPHILS % (AUTO) 0.5 %; EOSINOPHILS # (AUTO) 0.1 10^3/uL (0.0-0.7); EOSINOPHILS % (AUTO) 1.2 %; HGB - HEMOGLOBIN 13.9 g/dL (14.0-18.0); LYMPHOCYTES # (AUTO) 2.8 10^3/uL (1.5-3.5); LYMPHOCYTES % (AUTO) 35.1 %; MEAN CORPUSCULAR HEMOGLOBIN 30.1 pg (27.0-31.0); MEAN CORPUSCULAR HGB CONC 34.3 g/dL (32.0-36.0); MEAN PLATELET VOLUME 7.5 fL (7.4-11.4); MONOCYTES # (AUTO) 0.5 10^3/uL (0.0-1.0); MONOCYTES % (AUTO) 5.9 %; NEUTROPHILS # (AUTO) 4.6 10^3/uL (1.5-6.6); NEUTROPHILS % (AUTO) 57.3 %; PLT - PLATELET COUNT 365 10^3/uL (130-450); RED BLOOD COUNT 4.62 10^6/uL (4.70-6.10); WHITE BLOOD COUNT 8.1 x10^3/uL (4.8-10.8)
[2019-02-18 21:06] LABS: ACETAMINOPHEN < 10 ug/mL (10-30); BUN - BLOOD UREA NITROGEN 12 mg/dL (6-20); CALCIUM 9.3 mg/dL (8.5-10.3); CARBON DIOXIDE - CO2 22 mmol/L (21-32); CHLORIDE 107 mmol/L (101-111); GFR - MDRD 80 (>89); GLUCOSE 103 mg/dL (70-100); SALICYLATE < 6.0 mg/dL; SODIUM 141 mmol/L (135-145)
[2019-02-18 21:18] LABS: MUDS CUTOFF CONCENTRATIONS CUTOFF CONC BELOW:
[2019-02-18 21:21] LABS: BILIRUBIN,URINE NEGATIVE (NEGATIVE); GLUCOSE, URINE (UA) NEGATIVE (NEGATIVE); KETONES,URINE (UA) TRACE mg/dL (NEGATIVE); LEUKOCYTE ESTERASE, URINE NEGATIVE (NEGATIVE); NITRITE,URINE NEGATIVE (NEGATIVE); OCCULT BLOOD,URINE NEGATIVE (NEGATIVE); PROTEIN,URINE NEGATIVE (NEGATIVE); UROBILINOGEN,URINE 0.2 (NORMAL) E.U./dL (NORMAL)
[2019-02-18 21:23] LABS: CLARITY,URINE CLEAR (CLEAR)
[2019-02-18 21:31] LABS: AMPHETAMINE SCREEN,URINE NEGATIVE (NEGATIVE); BENZODIAZEPINES SCREEN, URINE NEGATIVE (NEGATIVE); COCAINE SCREEN URINE NEGATIVE (NEGATIVE); METHADONE SCREEN, URINE NEGATIVE (NEGATIVE); METHAMPHETAMINES SCREEN, URINE NEGATIVE (NEGATIVE); OPIATE SCREEN, URINE POSITIVE (NEGATIVE); OXYCODONE SCREEN, URINE NEGATIVE (NEGATIVE); PROPOXYPHENE SCREEN, URINE NEGATIVE (NEGATIVE); TRICYCLIC ANTIDEPRESSANT,URINE NEGATIVE (NEGATIVE)
[2019-02-18] MEDS ORDERED: LORazepam 1 MG TABLET PO STA (21:58)
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
[2019-02-19] MEDS ORDERED: OLANZapine 10 MG VIAL IM STA (00:53)
[2019-02-19] MEDS ORDERED: LORazepam 1 MG TABLET PO STA ×4 (01:50→18:26)
[2019-02-19] MEDS ORDERED: oxyCODONE 5 MG TABLET PO STA ×2 (02:49→13:54)
--- NOTE | 2019-02-19 15:50 | ED Physician Documentation ---
ED Addendum - Addendum Addendum: 02/19/19 15:49 The patient remains stable here in the ER. He did have some increase in his anxiety and was given a repeat dose of Ativan. He was having some recurring upper back back pain which is common for him and was given a repeat dose of oxycodone which she had had last at 2 in the morning. These were just oral medications. Social work saw the patient was able to find placement for him. He is agreeable to this. The patient will be transferred to a psychiatric facility.
[2019-02-19 18:45] VITALS: BP 152/98
== END 2019-02-19 18:46 ==
LOC: EDUNIT# → ED 20:02
DX: F31.5 Bipolar disorder, current episode depressed, severe, with psychotic features (principal); R45.851 Suicidal ideations; M54.6 Pain in thoracic spine
CPT/HCPCS: 36415; 80048; 80306; 80307; 80320; 80329; 81003; 85025; 96372; 99284; 99285; A9270; G0427; J8499; Q3014; 81001; 87086